=== PATIENT | male | born 1960 | race Caucasian/White ===

== ENCOUNTER 2016-12-24 20:59 | Emergency (ER) | payer BC, OTHER ==
[2016-12-24 21:14] VITALS: BP 186/86
--- NOTE | 2016-12-24 21:51 | EDM.PDOC ---
ED HPI GENERAL MEDICAL PROBLEM - General Chief Complaint: Cardiovascular Problem Stated Complaint: SHORTNESS OF BREATH Time Seen by Provider: 12/24/16 21:09 Source of Information: Reports: Patient, RN Notes Reviewed History Limitations: Reports: No Limitations - History of Present Illness INITIAL COMMENTS - FREE TEXT/NARRATIVE: The patient states that he has been experiencing worsening dyspnea on exertion for the past week. He may have had some occasional wheezing. He denies recent cough or fever. No recent chest pain or palpitations. No recent nausea, vomiting, constipation, diarrhea, urinary symptoms or abdominal pain. The patient has chronic lower extremity edema, which he states is no worse than usual. He states that he sleeps in a recliner at night, but not because of orthopnea. He states that he was diagnosed with obstructive sleep apnea about 20 years ago , and that uvulectomy was recommended, but that he declined, and has never received any treatment for it. Additionally, the patient states that he has not had a general physical exam in at least that amount of time and therefore has no other medical diagnoses. Here in the ED, the patient's initial oxygen saturation was 66% on room air. It brittney to about 91% on 5 L oxygen per nasal cannula. - Related Data Allergies Allergy/AdvReac Type Severity Reaction Status Date / Time No Known Allergies Allergy Verified 12/24/16 21:18 Home Meds: Home Meds . [No Known Home Meds] 12/24/16 [History] Past Medical History Respiratory History: Reports: Sleep Apnea (untreated) Musculoskeletal History: Reports: Back Pain, Chronic Endocrine/Metabolic History: Reports: Obesity/BMI 30+ Social & Family History - Tobacco Use Smoking Status *Q: Current Every Day Smoker Years of Tobacco use: 30 Packs/Tins Daily: 1 - Caffeine Use Caffeine Use: Reports: Coffee, Energy Drinks, Soda - Alcohol Use Alcohol Use History: Yes Alcohol Use Frequency: Socially - Recreational Drug Use Recreational Drug Use: No - Living Situation & Occupation Living situation: Reports: , Alone Occupation: Employed ([employer]) ED ROS GENERAL - Review of Systems Review Of Systems: See Below Constitutional: Reports: No Symptoms HEENT: Reports: No Symptoms Respiratory: Reports: No Symptoms Cardiovascular: Reports: No Symptoms Endocrine: Reports: No Symptoms GI/Abdominal: Reports: No Symptoms : Reports: No Symptoms Musculoskeletal: Reports: No Symptoms Skin: Reports: No Symptoms Neurological: Reports: No Symptoms Psychiatric: Reports: No Symptoms Hematologic/Lymphatic: Reports: No Symptoms Immunologic: Reports: No Symptoms ED EXAM, GENERAL - Physical Exam Exam: See Below Exam Limited By: No Limitations General Appearance: Alert, WD/WN, No Apparent Distress, Obese Eye Exam: Bilateral Eye: Normal Inspection Ears: Normal External Exam, Hearing Grossly Normal Nose: Normal Inspection, No Blood Throat/Mouth: Normal Inspection, Normal Lips, Normal Voice, No Airway Compromise Head: Atraumatic, Normocephalic Neck: Normal Inspection, Full Range of Motion Respiratory/Chest: No Respiratory Distress, No Accessory Muscle Use, Decreased Breath Sounds, Wheezing (faint, expiratory). No: Respiratory Distress, Prolonged Expiration Cardiovascular: Normal Peripheral Pulses, Regular Rate, Rhythm, No Gallop, No JVD, No Murmur, No Rub Peripheral Pulses: 4+: Radial (L), Radial (R) GI/Abdominal: Normal Bowel Sounds, Soft, Non-Tender, No Organomegaly, No Distention, No Abnormal Bruit, No Mass, Other (Obese) (Male) Exam: Deferred Rectal (Males) Exam: Deferred Back Exam: Normal Inspection, Full Range of Motion, NT Extremities: Normal Range of Motion, Normal Capillary Refill, Other (2-3+ pitting pretibial edema bilateral legs, both with associated hyperpigmentation consistent with chronic venous stasis.) Neurological: Alert, Oriented, Normal Cognition, No Motor/Sensory Deficits Psychiatric: Normal Affect Skin Exam: Warm, Dry, Intact, Normal Color, No Rash Lymphatic: No Adenopathy ED CARDIOLOGY PROCEDURES - Endotracheal Intubation Time of Intubation: 01:08 ET Intubation Indication: Respiratory Failure Preparation: Suction, Balloon Tested, BVM Set Up, Difficult Airway Equip Airway Assessment: Obese, Large Tongue Pre-Oxygenation: Assisted With BVM, 100% FiO2 Anesthesia Meds: Propofol, Succinylcholine Placement: Orotracheal, Cuffed, Uncomplicated Placement Cords Visualized: Yes, Grade 4 ETT Size In mm: 8.0 Number of Attempts: 1 Confirmed By: CO2 Indicator, Bilateral Breath Sounds, Chest Xray Tube Secured By: By RT EKG INTERPRETATION EKG Date: 12/24/16 Time: 21:32 Rhythm: NSR Rate (Beats/Min): 86 [place]: Normal P-Wave: Present QRS: Normal ST-T: Normal QT: Normal Comparison: NA - No Prior EKG EKG Interpretation Comments: 1st degree AVB Course - Vital Signs Last Recorded V/S: Last Vital Signs Temp 36.8 C 12/24/16 21:11 Pulse 94 12/24/16 21:11 Resp 19 12/24/16 21:11 BP 186/86 H 12/24/16 21:11 Pulse Ox 90 L 12/25/16 01:22 - Orders/Labs/Meds Orders: Active Orders 24 hr Category Date Time Status BIPAP Adult [RT BiPAP/CPAP] [RC] ASDIRECTED Care 12/24/16 22:39 Active EKG Documentation Completion [RC] STAT Care 12/24/16 21:21 Active Ang Chest [CT] Stat Exams 12/24/16 22:14 Taken Chest 2V [CR] Stat Exams 12/24/16 21:21 Taken Sodium Chloride 0.9% [Normal Saline] 1,000 ml Med 12/24/16 22:15 Active IV ASDIRECTED Medication Orders Sodium Chloride (Normal Saline) 1,000 mls @ 150 mls/hr IV ASDIRECTED JUAN FRANCISCO Last Admin: 12/24/16 22:22 Dose: 150 mls/hr Midazolam HCl 50 mg/ Sodium (Chloride) 50 mls @ 10 mls/hr IV TITRATE JUAN FRANCISCO PRN Reason: 10 MG/HR Labs: Laboratory Tests 12/24/16 12/24/16 12/24/16 Range/Units 21:10 21:10 21:10 WBC 11.69 H (4.23-9.07) K/mm3 RBC 5.28 (4.63-6.08) M/mm3 Hgb 15.0 (13.7-17.5) gm/L Hct 50.7 (40.1-51.0) % MCV 96.0 H (79.0-92.2) fl MCH 28.4 (25.7-32.2) pg MCHC 29.6 L (32.2-35.5) g/dl RDW Std Deviation 61.3 H (35.1-43.9) fL Plt Count 208 (163-337) K/mm3 MPV 10.2 (9.4-12.3) fl Neutrophils % (Manual) 80 H (40-60) % Band Neutrophils % 0 (0-10) % Lymphocytes % (Manual) 10 L (20-40) % Atypical Lymphs % 0 % Monocytes % (Manual) 9 (2-10) % Eosinophils % (Manual) 1 (0.8-7.0) % Basophils % (Manual) 0 L (0.2-1.2) Platelet Estimate Adequate Plt Morphology Comment See note Polychromasia 1+ slight Poikilocytosis 1+ slight Anisocytosis 1+ slight RBC Morph Comment Not Reportable PT 11.3 (8.0-13.0) SECONDS INR 1.03 APTT 27 (22-36) SECONDS D-Dimer, Quantitative 1.36 H (0.19-0.59) mg/L Puncture Site ABG pH (7.35-7.45) ABG pCO2 (35.0-45.0) mmHg ABG pO2 (80.0-100.0) mmHg ABG HCO3 (22.0-26.0) meq/L A-a Gradient mmHg O2 Delivery Device FiO2 (21.00-100.00) % Blood Gas Comments Sodium 137 (136-145) mEq/L Potassium 4.8 (3.5-5.1) mEq/L Chloride 99 (98-107) mEq/L Carbon Dioxide 35 H (21-32) mEq/L Anion Gap 7.8 (5-15) BUN 15 (7-18) mg/dL Creatinine 1.4 H (0.7-1.3) mg/dL Est Cr Clr Drug Dosing 60.83 mL/min Estimated GFR (MDRD) 52 (>60) mL/min BUN/Creatinine Ratio 10.7 L (14-18) Glucose 136 H (74-106) mg/dL Lactic Acid (0.4-2.0) mmol/L Calcium 8.6 (8.5-10.1) mg/dL Total Bilirubin 0.3 (0.2-1.0) mg/dL AST 26 (15-37) U/L ALT 41 (16-63) U/L Alkaline Phosphatase 126 H (46-116) U/L Troponin I 0.039 (0.00-0.056) ng/mL B-Natriuretic Peptide (0-100) pg/mL Total Protein 8.6 H (6.4-8.2) g/dl Albumin 3.0 L (3.4-5.0) g/dl Globulin 5.6 gm/dL Albumin/Globulin Ratio 0.5 L (1-2) 12/24/16 12/24/16 12/24/16 Range/Units 21:10 21:21 21:40 WBC (4.23-9.07) K/mm3 RBC (4.63-6.08) M/mm3 Hgb (13.7-17.5) gm/L Hct (40.1-51.0) % MCV (79.0-92.2) fl MCH (25.7-32.2) pg MCHC (32.2-35.5) g/dl RDW Std Deviation (35.1-43.9) fL Plt Count (163-337) K/mm3 MPV (9.4-12.3) fl Neutrophils % (Manual) (40-60) % Band Neutrophils % (0-10) % Lymphocytes % (Manual) (20-40) % Atypical Lymphs % % Monocytes % (Manual) (2-10) % Eosinophils % (Manual) (0.8-7.0) % Basophils % (Manual) (0.2-1.2) Platelet Estimate Plt Morphology Comment Polychromasia Poikilocytosis Anisocytosis RBC Morph Comment PT (8.0-13.0) SECONDS INR APTT (22-36) SECONDS D-Dimer, Quantitative (0.19-0.59) mg/L Puncture Site Rt radial ABG pH 7.23 L (7.35-7.45) ABG pCO2 88.0 H* (35.0-45.0) mmHg ABG pO2 76.0 L (80.0-100.0) mmHg ABG HCO3 35.3 H (22.0-26.0) meq/L A-a Gradient mmHg O2 Delivery Device Nasal cannula FiO2 0.00 L (21.00-100.00) % Blood Gas Comments Sodium (136-145) mEq/L Potassium (3.5-5.1) mEq/L Chloride (98-107) mEq/L Carbon Dioxide (21-32) mEq/L Anion Gap (5-15) BUN (7-18) mg/dL Creatinine (0.7-1.3) mg/dL Est Cr Clr Drug Dosing mL/min Estimated GFR (MDRD) (>60) mL/min BUN/Creatinine Ratio (14-18) Glucose (74-106) mg/dL Lactic Acid 1.0 (0.4-2.0) mmol/L Calcium (8.5-10.1) mg/dL Total Bilirubin (0.2-1.0) mg/dL AST (15-37) U/L ALT (16-63) U/L Alkaline Phosphatase (46-116) U/L Troponin I (0.00-0.056) ng/mL B-Natriuretic Peptide 443 H (0-100) pg/mL Total Protein (6.4-8.2) g/dl Albumin (3.4-5.0) g/dl Globulin gm/dL Albumin/Globulin Ratio (1-2) 12/24/16 Range/Units 23:30 WBC (4.23-9.07) K/mm3 RBC (4.63-6.08) M/mm3 Hgb (13.7-17.5) gm/L Hct (40.1-51.0) % MCV (79.0-92.2) fl MCH (25.7-32.2) pg MCHC (32.2-35.5) g/dl RDW Std Deviation (35.1-43.9) fL Plt Count (163-337) K/mm3 MPV (9.4-12.3) fl Neutrophils % (Manual) (40-60) % Band Neutrophils % (0-10) % Lymphocytes % (Manual) (20-40) % Atypical Lymphs % % Monocytes % (Manual) (2-10) % Eosinophils % (Manual) (0.8-7.0) % Basophils % (Manual) (0.2-1.2) Platelet Estimate Plt Morphology Comment Polychromasia Poikilocytosis Anisocytosis RBC Morph Comment PT (8.0-13.0) SECONDS INR APTT (22-36) SECONDS D-Dimer, Quantitative (0.19-0.59) mg/L Puncture Site Rt radial ABG pH 7.17 L* (7.35-7.45) ABG pCO2 99.9 H* (35.0-45.0) mmHg ABG pO2 79.0 L (80.0-100.0) mmHg ABG HCO3 35.2 H (22.0-26.0) meq/L A-a Gradient 52 mmHg O2 Delivery Device Bipap FiO2 40.00 (21.00-100.00) % Blood Gas Comments 03/18 Sodium (136-145) mEq/L Potassium (3.5-5.1) mEq/L Chloride (98-107) mEq/L Carbon Dioxide (21-32) mEq/L Anion Gap (5-15) BUN (7-18) mg/dL Creatinine (0.7-1.3) mg/dL Est Cr Clr Drug Dosing mL/min Estimated GFR (MDRD) (>60) mL/min BUN/Creatinine Ratio (14-18) Glucose (74-106) mg/dL Lactic Acid (0.4-2.0) mmol/L Calcium (8.5-10.1) mg/dL Total Bilirubin (0.2-1.0) mg/dL AST (15-37) U/L ALT (16-63) U/L Alkaline Phosphatase (46-116) U/L Troponin I (0.00-0.056) ng/mL B-Natriuretic Peptide (0-100) pg/mL Total Protein (6.4-8.2) g/dl Albumin (3.4-5.0) g/dl Globulin gm/dL Albumin/Globulin Ratio (1-2) Meds: Medications Generic Name Dose Route Start Last Admin Trade Name Freq PRN Reason Stop Dose Admin Sodium Chloride 1,000 mls @ 150 mls/hr 12/24/16 22:15 12/24/16 22:22 Normal Saline IV 150 mls/hr ASDIRECTED JUAN FRANCISCO Administration Midazolam HCl 50 mg/ Sodium 50 mls @ 10 mls/hr 12/25/16 01:45 Chloride IV TITRATE JUAN FRANCISCO 10 MG/HR Discontinued Medications Generic Name Dose Route Start Last Admin Trade Name Freq PRN Reason Stop Dose Admin Albuterol/Ipratropium 3 ml 12/25/16 01:22 12/25/16 01:51 Duoneb 3.0-0.5 Mg/3 Ml NEB 12/25/16 01:23 3 ml ONETIME ONE Administration Albuterol/Ipratropium Confirm 12/25/16 01:25 Duoneb 3.0-0.5 Mg/3 Ml Administered 12/25/16 01:26 Dose 3 ml .ROUTE .STK-MED ONE Propofol Confirm 12/25/16 00:53 Diprivan 100 Ml Administered 12/25/16 00:54 Dose 100 mls @ as directed .ROUTE .STK-MED ONE Rocuronium [place] Confirm 12/25/16 01:23 Zemuron Administered 12/25/16 01:24 Dose 100 mg .ROUTE .STK-MED ONE - Re-Assessments/Exams Free Text/Narrative Re-Assessment/Exam: 12/24/16 22:10 Two-view chest radiograph appears to be grossly unremarkable. Cardiac silhouette demonstrate mild cardiomegaly. No pulmonary vascular congestion. No pleural effusions. No focal infiltrate. No pneumothorax. Formal read per the Radiologist pending. 12/24/16 22:15 Notified that the patient's d-dimer is elevated at 1.36. I have ordered a CT angiogram to evaluate for PE, along with IV fluid. 12/24/16 22:38 The patient's ABG demonstrates an [id number] respiratory acidosis. While the patient does not appear to be struggling to breathe, I will order some BiPAP to see if we can improve his acid/base status. 12/24/16 23:16 Notified by the nurse that the patient just had a brief run of ventricular tachycardia. 12/24/16 23:54 CT angiogram of the chest is read by [facility] as: 1. Pulmonary arterial hypertension. No obvious pulmonary embolus. 2. Low lung volumes with a small amount of dependent atelectasis. 3. Small basilar infiltrates in atelectatic lung not excluded 12/25/16 00:[address] Calloway at 00:01. She accepts the patient to be admitted to [facility] with telemetry. 12/25/16 00:51 The patient's repeat ABG is worse, despite BiPAP, at 7.17/99.9/79/35.2. He will need to be intubated. 12/25/16 01:13 Following propofol and succinylcholine, the patient was intubated without difficulty. Initial vent settings are A/C 14 / .500 / 5.0 / 0.50. Case then discussed with Dr. Calloway at 01:13. She would like the patient to be transferred. 12/25/16 01:25 The telephone surveyor at [facility], Dr. Wade, is currently busy with a procedure. We will re-attempt to contact him in about 10 minutes. Post intubation portal chest radiograph appears to demonstrate the tip of the ET tube approximately 3 cm above the gonzalo, and the OG tube to the stomach via the esophagus. 12/25/16 01:[address] Wade at 01:31. He accepts the patient to transfer to their ICU. Post admission, the patient was fighting the ventilator. His propofol was increased from 50 mcg/kg/min to 75 mcg/kg/min. His blood pressure, however, subsequently dropped into the 70s, therefore I have ordered discontinuation of the propofol, and will switch him to a Versed drip. In the meantime, I have ordered rocuronium 160 mg IVP. 12/25/16 02:33 Ground transport was not available, therefore the patient will go by fixed wing. He is too heavy for helicopter. The flight crew is here to transfer the patient. Departure - Departure Time of Disposition: 02:34 Disposition: DC/Tfer to Acute Hospital 02 Condition: Serious Clinical Impression: Hypoxemia, Hypercapnic respiratory failure - My Orders Last 24 Hours: My Active Orders 12/24/16 21:21 EKG Documentation Completion [RC] STAT Chest 2V [CR] Stat 12/24/16 22:14 Ang Chest [CT] Stat 12/24/16 22:15 Sodium Chloride 0.9% [Normal Saline] 1,000 ml IV ASDIRECTED 12/24/16 22:39 BIPAP Adult [RT BiPAP/CPAP] [RC] ASDIRECTED - Assessment/Plan Last 24 Hours: My Active Orders 12/24/16 21:21 EKG Documentation Completion [RC] STAT Chest 2V [CR] Stat 12/24/16 22:14 Ang Chest [CT] Stat 12/24/16 22:15 Sodium Chloride 0.9% [Normal Saline] 1,000 ml IV ASDIRECTED 12/24/16 22:39 BIPAP Adult [RT BiPAP/CPAP] [RC] ASDIRECTED
[2016-12-24] MEDS ORDERED: Sodium Chloride 0.9% 1,000 ML IV SCH (22:15)
[2016-12-25] MEDS ORDERED: Propofol 1,000 MG/100 ML SDV ONE (00:54)
[2016-12-25] MEDS ORDERED: Propofol 200 MG/20 ML SDV ONE (00:54)
[2016-12-25] MEDS ORDERED: Albuterol/Ipratropium 3.0-0.5 MG/3 ML Neb Soln NEB ONE (01:22)
[2016-12-25] MEDS ORDERED: Rocuronium 50 MG/5 ML Vial ONE ×2 (01:23→01:24)
[2016-12-25] MEDS ORDERED: Succinylcholine/Normal Saline 100 MG/5 ML Syringe ONE (01:24)
[2016-12-25] MEDS ORDERED: Albuterol/Ipratropium 3.0-0.5 MG/3 ML Neb Soln ONE (01:25)
[2016-12-25] MEDS ORDERED: Midazolam 50 MG in Sodium Chloride 0.9% 40 ML IV SCH (01:45)
[2016-12-25] MEDS ORDERED: Midazolam 50 MG in Sodium Chloride 0.9% 50 ML IV SCH (02:34)
[2016-12-25] MEDS ORDERED: Sodium Chloride 0.9% 250 ML ONE (02:54)
--- NOTE | 2016-12-25 12:18 | PCM.DCSUM1 ---
Discharge Summary - Hospital Course Free Text/Narrative:: 56 year old male who has no known history of respiratory disease, presented with difficulty breathing. He was not seen by the hospitalist service. Information provided was very limited; the initial acceptance was based on reassurance that the patient was appropriate for the floor despite multiple questions for clarification. Prior to his transfer from the ED to the hospital side, the patient had marked depression of his respiratory drive. He was intubated; the final ABG which documented the change in status was not provided. After hearing the need for the intubation, the hospitalist service recommended transfer to [facility]. 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 Thus the patient was never seen or examined by the hospitalist service prior to transfer by fixed wing. He was not appropriate for a helicopter because of weight restrictions. - Discharge Data Discharge Date: 12/25/16 Discharge Disposition: DC/Tfer to [facility] 02 Preliminary Cause of *Q: Respiratory Failure Condition: Fair - Patient Instructions Diet: NPO Activity: Bedrest Driving: Do Not Drive Showering/Bathing: No Showering Notify Provider of: Fever - Discharge Plan Home Medications: Home Meds . [No Known Home Meds] 12/24/16 [History] Referrals: PCP,None [Primary Care Provider] - - Discharge Summary/Plan Comment DC Time >30 min.: No - Patient Data Vitals - Most Recent: Last Vital Signs Temp 36.8 C 12/24/16 21:11 Pulse 94 12/24/16 21:11 Resp 19 12/24/16 21:11 BP 186/86 H 12/24/16 21:11 Pulse Ox 90 L 12/25/16 01:22 Weight - Most Recent: 158.757 kg I&O - Last 24 hours: Intake & Output 12/24/16 12/25/16 12/25/16 22:59 06:59 14:59 Output Total 475 Balance -475 Med Orders - Current: Current Medications Sodium Chloride (Normal Saline) 1,000 mls @ 150 mls/hr IV ASDIRECTED JUAN FRANCISCO Last Admin: 12/24/16 22:22 Dose: 150 mls/hr Midazolam HCl 50 mg/ Sodium (Chloride) 100 mls @ 20 mls/hr IV TITRATE JUAN FRANCISCO PRN Reason: 10 MG/HR Discontinued Medications Albuterol/Ipratropium (Duoneb 3.0-0.5 Mg/3 Ml) 3 ml NEB ONETIME ONE Stop: 12/25/16 01:23 Last Admin: 12/25/16 01:51 Dose: 3 ml Albuterol/Ipratropium (Duoneb 3.0-0.5 Mg/3 Ml) Confirm Administered Dose 3 ml .ROUTE .STK-MED ONE Stop: 12/25/16 01:26 Propofol (Diprivan 100 Ml) Confirm Administered Dose 100 mls @ as directed .ROUTE .STK-MED ONE Stop: 12/25/16 00:54 Midazolam HCl 50 mg/ Sodium (Chloride) 50 mls @ 10 mls/hr IV TITRATE JUAN FRANCISCO PRN Reason: 10 MG/HR Sodium Chloride (Normal Saline) Confirm Administered Dose 250 mls @ as directed .ROUTE .STK-MED ONE Stop: 12/25/16 02:55 Rocuronium [place] (Zemuron) Confirm Administered Dose 100 mg .ROUTE .STK-MED ONE Stop: 12/25/16 01:24 Discharge Operative/Procedures - Procedures Performed Intubation Indication: Respiratory Failure *Q Meaningful Use (DIS) - VTE *Q VTE Criteria *Q: - Stroke *Q Stroke Criteria *Q: - AMI *Q AMI Criteria *Q:
--- NOTE | 2016-12-28 13:37 | CR ---
Chest: 2 views of the chest are obtained. Comparison: No prior chest x-ray Slight atelectasis is noted within the right and left lung bases. Minimal atelectasis noted within the left midlung. Slight areas of pleural thickening noted along both lateral chest parish. Heart size and mediastinum are normal. Bony structures are unremarkable. Impression: 1. Findings felt to be incidental as described above. Nothing acute is definitely appreciated. Diagnostic code #2
--- NOTE | 2016-12-28 13:44 | CR ---
Chest: Portable view of the chest was obtained. Comparison: Previous chest x-ray of 12/24/16. Heart size and mediastinum are within normal limits for portable technique. Endotracheal tube is seen with tip lying at the level of the clavicles. Nasogastric tube is seen with tip lying in the area of the stomach. Impression: 1. Satisfactory position of endotracheal and nasogastric tube. 2. Nothing acute appreciated on portable chest x-ray. Diagnostic code #3
--- NOTE | 2016-12-28 15:52 | CT ---
CT chest Technique: Multiple axial sections through the chest are obtained. Intravenous contrast was utilized. Study was performed as a pulmonary angiogram protocol. Findings: Prominent amount of mediastinal fat is incidentally noted. Mild coronary artery calcification is seen. Pulmonary arteries are not optimally opacified. No discrete filling defects are seen within the main or segmental branches. Subsegmental pulmonary emboli could be missed. No mediastinal adenopathy is seen. Hilar regions appear within normal limits. Slight atelectasis is noted within the right lung base. Lungs otherwise are clear. Incidental cyst is noted within the left kidney. Minimal degenerative spurring is noted within the spine. Impression: 1. No findings of pulmonary embolism within the main or segmental branches. 2. Slight right basilar atelectasis. 3. Other incidental findings. Diagnostic code #2 I agree with preliminary report issued by [facility] ([facility] report finalized on 12/25/16, 12:49 AM Central Time)
== END 2016-12-25 03:05 ==
LOC: JD.ED 20:59 → JD.MS 12-25 00:33 → UNDOADMIN 12-25 00:33 → JD.ED 12-25 03:05
DX: J96.92 Respiratory failure, unspecified with hypercapnia (principal); E66.9 Obesity, unspecified; F17.210 Nicotine dependence, cigarettes, uncomplicated; G47.30 Sleep apnea, unspecified
CPT/HCPCS: 31500; 36415; 36600; 51702; 71020; 71275; 80053; 82803; 83605; 83880; 84484; 85025; 85379; 85610; 85730; 93005; 94660; 94664; 96361; 96365; 96374; 96375; 99291; 99292; J0330; J2250; J7040; J7050; J2704; J3490

== ENCOUNTER 2017-01-16 10:19 | Inpatient (IN) | payer OTHER ==
[2017-01-16] MEDS ORDERED: methylPREDNISolone Sodium Succinate 125 MG/2 ML SDV IVPUSH ONE (10:45)
[2017-01-16] MEDS ORDERED: Albuterol/Ipratropium 3.0-0.5 MG/3 ML Neb Soln NEB ONE ×2 (10:45→10:48)
--- NOTE | 2017-01-16 10:48 | EDM.PDOC ---
ED HPI GENERAL MEDICAL PROBLEM - General Chief Complaint: Respiratory Problem Stated Complaint: SOB Time Seen by Provider: 01/16/17 10:26 Source of Information: Reports: Patient History Limitations: Reports: No Limitations - History of Present Illness INITIAL COMMENTS - FREE TEXT/NARRATIVE: The patient is a 56-year-old male who comes in with shortness of breath. He was recently admitted at [facility] in [facility] for respiratory failure. He had to be intubated. He was treated for pneumonia and CHF exacerbation and COPD. He was just discharged about a week ago. He's been feeling more short of breath for the past day or 2. He's also had increased cough and increased sputum production. Has been feeling progressively more short of breath. He feels generally ill, not sure if he's had a fever. He does not have any chest pain. No lower extremity pain or swelling. No abdominal pain. States that he completed his antibiotics while in [facility], not currently on antibiotics. He is currently on 3 L of oxygen nasal cannula at home and has also been using nebulizer treatments. Nebulizer treatments have not been helpful. Right Chest Pain Score (Numeric/FACES): 3 - Related Data Allergies Allergy/AdvReac Type Severity Reaction Status Date / Time No Known Allergies Allergy Verified 01/16/17 10:26 Home Meds: Home Meds . [No Known Home Meds] 12/24/16 [History] Past Medical History - Past Health History Medical/Surgical History: Denies Medical/Surgical History Respiratory History: Reports: Sleep Apnea (untreated) Other Respiratory History: sleep apnea Musculoskeletal History: Reports: Back Pain, Chronic Endocrine/Metabolic History: Reports: Obesity/BMI 30+ Social & Family History - Tobacco Use Smoking Status *Q: Current Every Day Smoker Years of Tobacco use: 30 Packs/Tins Daily: 1 - Caffeine Use Caffeine Use: Reports: Coffee, Energy Drinks, Soda - Recreational Drug Use Recreational Drug Use: No - Living Situation & Occupation Living situation: Reports: , Alone 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 Denies: Fever HEENT: Reports: No Symptoms Respiratory: Reports: Shortness of Breath, Cough Cardiovascular: Reports: Dyspnea on Exertion. Denies: Chest Pain, Edema GI/Abdominal: Denies: Abdominal Pain : Reports: No Symptoms Musculoskeletal: Reports: No Symptoms Skin: Reports: No Symptoms Neurological: Reports: No Symptoms Psychiatric: Reports: No Symptoms ED EXAM, GENERAL - Physical Exam Exam: See Below Exam Limited By: No Limitations General Appearance: Alert, Moderate Distress, Other (very short of breath) Eye Exam: Bilateral Eye: Normal Inspection Ears: Normal External Exam Nose: Normal Inspection Throat/Mouth: Normal Inspection, Normal Voice, No Airway Compromise Head: Atraumatic, Normocephalic Neck: Normal Inspection, Supple, Non-Tender, Full Range of Motion Respiratory/Chest: Respiratory Distress, Decreased Breath Sounds, Wheezing Cardiovascular: Regular Rate, Rhythm, No Edema, Tachycardia GI/Abdominal: Soft, Non-Tender, No Distention. No: Rebound Back Exam: Normal Inspection Extremities: Normal Inspection Neurological: Alert, Oriented, Normal Cognition, No Motor/Sensory Deficits Psychiatric: Normal Affect, Normal Mood Skin Exam: Warm, Dry, Intact, Normal Color, No Rash Course - Vital Signs Last Recorded V/S: Last Vital Signs Temp 36.1 C 01/16/17 13:47 Pulse 109 H 01/16/17 13:47 Resp 27 H 01/16/17 13:47 BP 126/76 01/16/17 13:47 Pulse Ox 92 L 01/16/17 13:49 - Orders/Labs/Meds Orders: Active Orders 24 hr Category Date Time Status Patient Status [ADT] Routine ADT 01/16/17 13:42 Active EKG 12 Lead [EKG Documentation Completion] [RC] STAT Care 01/16/17 10:44 Active Peripheral IV Care [RC] . DIRECTED Care 01/16/17 10:45 Active RT Aerosol Therapy [RC] ASDIRECTED Care 01/16/17 10:45 Active RT Aerosol Therapy [RC] ASDIRECTED Care 01/16/17 10:48 Active CULTURE BLOOD [BC] Stat Lab 01/16/17 10:59 Received CULTURE BLOOD [BC] Stat Lab 01/16/17 11:23 Received Sodium Chloride 0.9% [Saline Flush] Med 01/16/17 10:44 Active 10 ml FLUSH ASDIRECTED PRN Blood Culture x2 Reflex Set [OM.PC] Stat Oth 01/16/17 10:44 Ordered Peripheral IV Insertion Adult [OM.PC] Routine Oth 01/16/17 10:44 Ordered Medication Orders Acetaminophen (Tylenol) 650 mg PO Q4H PRN PRN Reason: Pain (Mild 1-3)/fever Hydrocodone Bitart/Acetaminophen (Wilson 325-5 Mg) 1 tab PO Q4H PRN PRN Reason: Pain (moderate 4-6) Albuterol/Ipratropium (Duoneb 3.0-0.5 Mg/3 Ml) 3 ml NEB Q4H PRN PRN Reason: Shortness Of Breath/wheezing Bisacodyl (Dulcolax) 5 mg PO DAILY PRN PRN Reason: Constipation Dextrose/Water (Dextrose 50% In Water) 50 ml IVPUSH ASDIRECTED PRN PRN Reason: Hypoglycemia Docusate Sodium (Colace) 100 mg PO BID PRN PRN Reason: Constipation Glipizide (Glucotrol Xl) 5 mg PO BID JUAN FRANCISCO Heparin Sodium (Porcine) (Heparin Sodium) 5,000 units SUBCUT Q8H JUAN FRANCISCO Hydralazine HCl (Apresoline) 20 mg IVPUSH Q4H PRN PRN Reason: Hypertension Hydrochlorothiazide (Hydrochlorothiazide) 12.5 mg PO BIDDIURETIC JUAN FRANCISCO Magnesium Sulfate 2 gm/ Premix 50 mls @ 25 mls/hr IV ONETIME ONE Stop: 01/16/17 15:54 Last Admin: 01/16/17 14:15 Dose: 25 mls/hr Promethazine HCl 12.5 mg/ (Sodium Chloride) 50.5 mls @ 100 mls/hr IV Q6H PRN PRN Reason: Nausea/Vomiting Azithromycin 500 mg/ Sodium (Chloride) 250 mls @ 250 mls/hr IV Q24H JUAN FRANCISCO Furosemide 100 mg/ Sodium (Chloride) 100 mls @ 3 mls/hr IV TITRATE JUAN FRANCISCO PRN Reason: Protocol Insulin Aspart (Novolog) 0 unit SUBCUT QIDACANDBED JUAN FRANCISCO PRN Reason: Protocol Lorazepam (Ativan) 1 mg IV Q6H PRN PRN Reason: Anxiety Lorazepam (Ativan) 2 mg IVPUSH Q4H PRN PRN Reason: Seizures Magnesium Sulfate (Pharmacy To Dose - Magnesium Replacement) 1 dose .XX ASDIRECTED [facility] Methylprednisolone Sodium Succinate (Solu-Medrol) 80 mg IVPUSH Q8H JUAN FRANCISCO Metoprolol Tartrate (Lopressor) 5 mg IVPUSH Q4H PRN PRN Reason: Tachycardia Morphine Sulfate (Morphine) 2 mg IVPUSH Q4H PRN PRN Reason: Other Stop: 01/21/17 13:51 Last Admin: 01/16/17 14:11 Dose: 2 mg Ondansetron HCl (Zofran) 4 mg IV Q6H PRN PRN Reason: Nausea/Vomiting Polyethylene Glycol (Miralax) 17 gm PO DAILY PRN PRN Reason: Constipation Potassium Chloride (Pharmacy To Dose - Potassium Replacement) 1 dose .XX ASDIRECTED JUAN FRANCISCO Senna/Docusate Sodium (Senna Plus) 1 tab PO BID PRN PRN Reason: Constipation Sodium Chloride (Saline Flush) 10 ml FLUSH ASDIRECTED PRN PRN Reason: Keep Vein Open Last Admin: 01/16/17 11:04 Dose: 10 ml Temazepam (Restoril) 15 mg PO BEDTIME PRN PRN Reason: Sleep Labs: Laboratory Tests 01/16/17 01/16/17 01/16/17 Range/Units 10:35 10:35 10:35 WBC 13.21 H (4.23-9.07) K/mm3 RBC 5.13 (4.63-6.08) M/mm3 Hgb 14.3 (13.7-17.5) gm/L Hct 45.0 (40.1-51.0) % MCV 87.7 (79.0-92.2) fl MCH 27.9 (25.7-32.2) pg MCHC 31.8 L (32.2-35.5) g/dl RDW Std Deviation 53.2 H (35.1-43.9) fL Plt Count 172 (163-337) K/mm3 MPV 10.9 (9.4-12.3) fl Neut % (Auto) 83.5 H (34.0-67.9) % Lymph % (Auto) 7.9 L (21.8-53.1) % [place] % (Auto) 7.0 (5.3-12.2) % Eos % (Auto) 1.1 (0.8-7.0) Baso % (Auto) 0.2 (0.1-1.2) % Neut # (Auto) 11.03 H (1.78-5.38) K/mm3 Lymph # (Auto) 1.05 L (1.32-3.57) K/mm3 [place] # (Auto) 0.93 H (0.30-0.82) K/mm3 Eos # (Auto) 0.14 (0.04-0.54) K/mm3 Baso # (Auto) 0.02 (0.01-0.08) K/mm3 Manual Slide Review Abnormal smear Sodium 135 L (136-145) mEq/L Potassium 4.2 (3.5-5.1) mEq/L Chloride 100 (98-107) mEq/L Carbon Dioxide 26 (21-32) mEq/L Anion Gap 13.2 (5-15) BUN 20 H (7-18) mg/dL Creatinine 1.7 H (0.7-1.3) mg/dL Est Cr Clr Drug Dosing 51.68 mL/min Estimated GFR (MDRD) 42 (>60) mL/min BUN/Creatinine Ratio 11.8 L (14-18) Glucose 181 H (74-106) mg/dL Hemoglobin A1c (4.50-6.20) % Lactic Acid (0.4-2.0) mmol/L Calcium 9.1 (8.5-10.1) mg/dL Magnesium 1.9 (1.8-2.4) mg/dl Total Bilirubin 8.2 H (0.2-1.0) mg/dL AST 31 (15-37) U/L ALT 63 (16-63) U/L Alkaline Phosphatase 210 H (46-116) U/L Troponin I 0.052 (0.00-0.056) ng/mL C-Reactive Protein 24.3 H* (<1.0) mg/dL Ypn-Q-Rvfbbsstduz Pept 47241 H (0-125) pg/mL Total Protein 8.2 (6.4-8.2) g/dl Albumin 2.8 L (3.4-5.0) g/dl Globulin 5.4 gm/dL Albumin/Globulin Ratio 0.5 L (1-2) Free T4 (0.76-1.46) ng/dL TSH 3rd Generation (0.358-3.74) uIU/mL Urine Color (Yellow) Urine Appearance (Clear) Urine pH (5.0-8.0) Ur Specific [place] (1.005-1.030) Urine Protein (Negative) Urine Glucose (UA) (Negative) Urine Ketones (Negative) Urine Occult Blood (Negative) Urine Nitrite (Negative) Urine Bilirubin (Negative) Urine Urobilinogen (0.2-1.0) Ur Leukocyte Esterase (Negative) Urine RBC (0-5) /hpf Urine WBC (0-5) /hpf Ur Epithelial Cells Urine Bacteria (FEW) /hpf Urine Mucus (FEW) /hpf 01/16/17 01/16/17 01/16/17 Range/Units 10:35 10:35 10:59 WBC (4.23-9.07) K/mm3 RBC (4.63-6.08) M/mm3 Hgb (13.7-17.5) gm/L Hct (40.1-51.0) % MCV (79.0-92.2) fl MCH (25.7-32.2) pg MCHC (32.2-35.5) g/dl RDW Std Deviation (35.1-43.9) fL Plt Count (163-337) K/mm3 MPV (9.4-12.3) fl Neut % (Auto) (34.0-67.9) % Lymph % (Auto) (21.8-53.1) % [place] % (Auto) (5.3-12.2) % Eos % (Auto) (0.8-7.0) Baso % (Auto) (0.1-1.2) % Neut # (Auto) (1.78-5.38) K/mm3 Lymph # (Auto) (1.32-3.57) K/mm3 [place] # (Auto) (0.30-0.82) K/mm3 Eos # (Auto) (0.04-0.54) K/mm3 Baso # (Auto) (0.01-0.08) K/mm3 Manual Slide Review Sodium (136-145) mEq/L Potassium (3.5-5.1) mEq/L Chloride (98-107) mEq/L Carbon Dioxide (21-32) mEq/L Anion Gap (5-15) BUN (7-18) mg/dL Creatinine (0.7-1.3) mg/dL Est Cr Clr Drug Dosing mL/min Estimated GFR (MDRD) (>60) mL/min BUN/Creatinine Ratio (14-18) Glucose (74-106) mg/dL Hemoglobin A1c 6.80 H (4.50-6.20) % Lactic Acid 1.2 (0.4-2.0) mmol/L Calcium (8.5-10.1) mg/dL Magnesium (1.8-2.4) mg/dl Total Bilirubin (0.2-1.0) mg/dL AST (15-37) U/L ALT (16-63) U/L Alkaline Phosphatase (46-116) U/L Troponin I (0.00-0.056) ng/mL C-Reactive Protein (<1.0) mg/dL Wel-X-Krxglhbqbbw Pept (0-125) pg/mL Total Protein (6.4-8.2) g/dl Albumin (3.4-5.0) g/dl Globulin gm/dL Albumin/Globulin Ratio (1-2) Free T4 1.44 (0.76-1.46) ng/dL TSH 3rd Generation 0.846 (0.358-3.74) uIU/mL Urine Color (Yellow) Urine Appearance (Clear) Urine pH (5.0-8.0) Ur Specific [place] (1.005-1.030) Urine Protein (Negative) Urine Glucose (UA) (Negative) Urine Ketones (Negative) Urine Occult Blood (Negative) Urine Nitrite (Negative) Urine Bilirubin (Negative) Urine Urobilinogen (0.2-1.0) Ur Leukocyte Esterase (Negative) Urine RBC (0-5) /hpf Urine WBC (0-5) /hpf Ur Epithelial Cells Urine Bacteria (FEW) /hpf Urine Mucus (FEW) /hpf 01/16/17 Range/Units 12:49 WBC (4.23-9.07) K/mm3 RBC (4.63-6.08) M/mm3 Hgb (13.7-17.5) gm/L Hct (40.1-51.0) % MCV (79.0-92.2) fl MCH (25.7-32.2) pg MCHC (32.2-35.5) g/dl RDW Std Deviation (35.1-43.9) fL Plt Count (163-337) K/mm3 MPV (9.4-12.3) fl Neut % (Auto) (34.0-67.9) % Lymph % (Auto) (21.8-53.1) % [place] % (Auto) (5.3-12.2) % Eos % (Auto) (0.8-7.0) Baso % (Auto) (0.1-1.2) % Neut # (Auto) (1.78-5.38) K/mm3 Lymph # (Auto) (1.32-3.57) K/mm3 [place] # (Auto) (0.30-0.82) K/mm3 Eos # (Auto) (0.04-0.54) K/mm3 Baso # (Auto) (0.01-0.08) K/mm3 Manual Slide Review Sodium (136-145) mEq/L Potassium (3.5-5.1) mEq/L Chloride (98-107) mEq/L Carbon Dioxide (21-32) mEq/L Anion Gap (5-15) BUN (7-18) mg/dL Creatinine (0.7-1.3) mg/dL Est Cr Clr Drug Dosing mL/min Estimated GFR (MDRD) (>60) mL/min BUN/Creatinine Ratio (14-18) Glucose (74-106) mg/dL Hemoglobin A1c (4.50-6.20) % Lactic Acid (0.4-2.0) mmol/L Calcium (8.5-10.1) mg/dL Magnesium (1.8-2.4) mg/dl Total Bilirubin (0.2-1.0) mg/dL AST (15-37) U/L ALT (16-63) U/L Alkaline Phosphatase (46-116) U/L Troponin I (0.00-0.056) ng/mL C-Reactive Protein (<1.0) mg/dL Uoh-L-Qaaoobdaaml Pept (0-125) pg/mL Total Protein (6.4-8.2) g/dl Albumin (3.4-5.0) g/dl Globulin gm/dL Albumin/Globulin Ratio (1-2) Free T4 (0.76-1.46) ng/dL TSH 3rd Generation (0.358-3.74) uIU/mL Urine Color Yellow (Yellow) Urine Appearance Slt cloudy H (Clear) Urine pH 6.0 (5.0-8.0) Ur Specific [place] 1.015 (1.005-1.030) Urine Protein 2+ H (Negative) Urine Glucose (UA) Negative (Negative) Urine Ketones Negative (Negative) Urine Occult Blood Trace-lysed H (Negative) Urine Nitrite Negative (Negative) Urine Bilirubin Negative (Negative) Urine Urobilinogen 1.0 (0.2-1.0) Ur Leukocyte Esterase Negative (Negative) Urine RBC 0-5 (0-5) /hpf Urine WBC 0-5 (0-5) /hpf Ur Epithelial Cells Not Reportable Urine Bacteria Few (FEW) /hpf Urine Mucus Few (FEW) /hpf Meds: Medications Generic Name Dose Route Start Last Admin Trade Name Freq PRN Reason Stop Dose Admin Acetaminophen 650 mg 01/16/17 13:47 Tylenol PO Q4H PRN Pain (Mild 1-3)/fever Hydrocodone Bitart/Acetaminophen 1 tab 01/16/17 13:47 Wilson 325-5 Mg PO Q4H PRN Pain (moderate 4-6) Albuterol/Ipratropium 3 ml 01/16/17 13:51 Duoneb 3.0-0.5 Mg/3 Ml NEB Q4H PRN Shortness Of Breath/wheezing Bisacodyl 5 mg 01/16/17 13:51 Dulcolax PO DAILY PRN Constipation Dextrose/Water 50 ml 01/16/17 14:53 Dextrose 50% In Water IVPUSH ASDIRECTED PRN Hypoglycemia Docusate Sodium 100 mg 01/16/17 13:51 Colace PO BID PRN Constipation Glipizide 5 mg 01/16/17 21:00 Glucotrol Xl PO BID JUAN FRANCISCO Heparin Sodium (Porcine) 5,000 units 01/16/17 15:00 Heparin Sodium SUBCUT Q8H JUAN FRANCISCO Hydralazine HCl 20 mg 01/16/17 13:55 Apresoline IVPUSH Q4H PRN Hypertension Hydrochlorothiazide 12.5 mg 01/16/17 14:30 Hydrochlorothiazide PO BIDDIURETIC JUAN FRANCISCO Magnesium Sulfate 2 gm/ Premix 50 mls @ 25 mls/hr 01/16/17 13:55 01/16/17 14: 15 IV 01/16/17 15:54 25 mls/hr ONETIME ONE Administration Promethazine HCl 12.5 mg/ 50.5 mls @ 100 mls/hr 01/16/17 13:51 Sodium Chloride IV Q6H PRN Nausea/Vomiting Azithromycin 500 mg/ Sodium 250 mls @ 250 mls/hr 01/16/17 15:00 Chloride IV Q24H [facility] Furosemide 100 mg/ Sodium 100 mls @ 3 mls/hr 01/16/17 15:30 Chloride IV TITRATE [facility] Protocol Insulin Aspart 0 unit 01/16/17 17:00 Novolog SUBCUT QIDACANDBED [facility] Protocol Lorazepam 1 mg 01/16/17 13:51 Ativan IV Q6H PRN Anxiety Lorazepam 2 mg 01/16/17 13:55 Ativan IVPUSH Q4H PRN Seizures Magnesium Sulfate 1 dose 01/16/17 14:00 Pharmacy To Dose - Magnesium Replacement .XX ASDIRECTED [facility] Methylprednisolone Sodium Succinate 80 mg 01/16/17 16:00 Solu-Medrol IVPUSH Q8H [facility] Metoprolol Tartrate 5 mg 01/16/17 13:55 Lopressor IVPUSH Q4H PRN Tachycardia Morphine Sulfate 2 mg 01/16/17 13:47 01/16/17 14:11 Morphine IVPUSH 01/21/17 13:51 2 mg Q4H PRN Administration Other Ondansetron HCl 4 mg 01/16/17 13:51 Zofran IV Q6H PRN Nausea/Vomiting Polyethylene Glycol 17 gm 01/16/17 13:51 Miralax PO DAILY PRN Constipation Potassium Chloride 1 dose 01/16/17 14:00 Pharmacy To Dose - Potassium Replacement .XX ASDIRECTED [facility] Senna/Docusate Sodium 1 tab 01/16/17 13:51 Senna Plus PO BID PRN Constipation Sodium Chloride 10 ml 01/16/17 10:44 01/16/17 11:04 Saline Flush FLUSH 10 ml ASDIRECTED PRN Administration Keep Vein Open Temazepam 15 mg 01/16/17 13:51 Restoril PO BEDTIME PRN Sleep Discontinued Medications Generic Name Dose Route Start Last Admin Trade Name Freq PRN Reason Stop Dose Admin Albuterol/Ipratropium 3 ml 01/16/17 10:45 01/16/17 10:50 Duoneb 3.0-0.5 Mg/3 Ml NEB 01/16/17 10:46 3 ml ONETIME ONE Administration Albuterol/Ipratropium 3 ml 01/16/17 10:48 01/16/17 10:51 Duoneb 3.0-0.5 Mg/3 Ml NEB 01/16/17 10:49 3 ml ONETIME ONE Administration Furosemide 40 mg 01/16/17 11:33 01/16/17 12:02 Lasix IVPUSH 01/16/17 11:34 40 mg NOW ONE Administration Hydrochlorothiazide 12.5 mg 01/17/17 13:59 Hydrochlorothiazide PO 01/17/17 14:00 DAILY ONE Piperacillin Sod/Tazobactam 100 mls @ 200 mls/hr 01/16/17 11:14 01/16/17 11: 26 Sod 4.5 gm/ Sodium Chloride IV 01/16/17 11:43 200 mls/hr ONETIME ONE Administration Vancomycin HCl 2 gm/ Sodium 500 mls @ 250 mls/hr 01/16/17 11:23 01/16/17 12: 05 Chloride IV 01/16/17 13:13 250 mls/hr ONETIME ONE Administration Azithromycin 500 mg/ Sodium 250 mls @ 250 mls/hr 01/16/17 13:56 Chloride IV 01/16/17 14:55 ONETIME ONE Methylprednisolone Sodium Succinate 125 mg 01/16/17 10:45 01/16/17 10:57 Solu-Medrol IVPUSH 01/16/17 10:46 125 mg ONETIME ONE Administration - Re-Assessments/Exams Free Text/Narrative Re-Assessment/Exam: 01/16/17 15:10 EKG shows normal sinus rhythm, deep T-wave inversions in leads V2, V3, V4, new compared to prior, no significant ST elevation. Chest x-ray shows mild cardiomegaly and mild interstitial haziness, difficult to rule out pneumonia or pulmonary edema. Labs are significant for very elevated BNP with no baseline in our system, renal insufficiency, elevated white count. Given elevated white count, tachycardia, and increased cough we'll treat with broad-spectrum antibiotics. I suspect that he has multifactorial causes of his shortness of breath, with components of possible infection, CHF, and or COPD. Discussed with Dr. Yuan who agrees to admit the patient to the ICU. He is feeling somewhat better after [id number] nebulizer treatments, steroids, and Lasix. Departure - Departure Time of Disposition: 12:27 Disposition: Admitted As Inpatient 66 Clinical Impression: Hypoxia, Respiratory distress, Renal insufficiency Pneumonia Qualifiers: Pneumonia type: due to unspecified organism Laterality: bilateral Lung location : lower lobe of lung Qualified Code(s): J18.9 - Pneumonia, unspecified organism Congestive heart failure Qualifiers: Congestive heart failure type: unspecified congestive heart failure type Congestive heart failure chronicity: acute Qualified Code(s): I50.9 - Heart failure, unspecified - Discharge Information Critical Care Note - Critical Care Note Total Time (mins): 30 - My Orders Last 24 Hours: My Active Orders 01/16/17 10:44 EKG 12 Lead [EKG Documentation Completion] [RC] STAT Sodium Chloride 0.9% [Saline Flush] 10 ml FLUSH ASDIRECTED PRN Blood Culture x2 Reflex Set [OM.PC] Stat Peripheral IV Insertion Adult [OM.PC] Routine 01/16/17 10:45 Peripheral IV Care [RC] . DIRECTED RT Aerosol Therapy [RC] ASDIRECTED 01/16/17 10:48 RT Aerosol Therapy [RC] ASDIRECTED 01/16/17 10:59 CULTURE BLOOD [BC] Stat 01/16/17 11:23 CULTURE BLOOD [BC] Stat 01/16/17 13:42 Patient Status [ADT] Routine - Assessment/Plan Last 24 Hours: My Active Orders 01/16/17 10:44 EKG 12 Lead [EKG Documentation Completion] [RC] STAT Sodium Chloride 0.9% [Saline Flush] 10 ml FLUSH ASDIRECTED PRN Blood Culture x2 Reflex Set [OM.PC] Stat Peripheral IV Insertion Adult [OM.PC] Routine 01/16/17 10:45 Peripheral IV Care [RC] . DIRECTED RT Aerosol Therapy [RC] ASDIRECTED 01/16/17 10:48 RT Aerosol Therapy [RC] ASDIRECTED 01/16/17 10:59 CULTURE BLOOD [BC] Stat 01/16/17 11:23 CULTURE BLOOD [BC] Stat 01/16/17 13:42 Patient Status [ADT] Routine
[2017-01-16] MEDS: Sodium Chloride 0.9% 10 ML Syringe FLUSH PRN (11:04)
[2017-01-16] MEDS ORDERED: Piperacillin/Tazobactam 4.5 GM in Sodium Chloride 0.9% 100 ML IV ONE (11:14)
[2017-01-16] MEDS ORDERED: Vancomycin 2 GM in Sodium Chloride 0.9% 500 ML IV ONE (11:23)
[2017-01-16] MEDS ORDERED: Furosemide 40 MG/4 ML VIAL IVPUSH ONE (11:33)
--- NOTE | 2017-01-16 12:25 | CR ---
Chest: Portable view of the chest was obtained. Comparison: Previous chest x-ray of 12/25/16. Heart is enlarged. Atelectasis is seen within both lung bases. Lungs otherwise are clear. Bony structures are grossly intact. Impression: 1. Mild bibasilar atelectasis. Mild cardiomegaly. 2. Nothing acute is otherwise seen on portable chest x-ray. Diagnostic code #2
--- NOTE | 2017-01-16 12:48 | PCM.SN ---
- Free Text/Narrative Note: Start: 1154 Stop: 1204 IV start, 22 gauge to right inner wrist times one attempt.
--- NOTE | 2017-01-16 13:46 | PCM.HP ---
H&P History of Present Illness - General Date of Service: 01/16/17 Admit Problem/Dx: Admission Diagnosis/Problem Admission Diagnosis/Problem Respiratory failure with hypoxia Source of Information: Patient, Old Records, Provider, RN Notes Reviewed, Significant Other History Limitations: Reports: Respiratory Distress - History of Present Illness Initial Comments - Free Text/Narative: This is a 56 yo white male with past medical hx/o Obesity and Chronic Back Pain who comes to the emergency department with complaints of worsening shortness of breath. Patient was seen here in ED on 12/24/2016 due to acute respiratory failure. At that time, he was intubated and shipped to [facility] for upper level of care. He was recently discharged in [facility] on 01/05/2017. He was told he had pneumonia. Patient has done fairly well since discharge. However starting 3-4 days ago, he develops the same symptom and has aggressively gotten worse since then. Currently, he is on supplemental O2. And he has been scheduled for sleep study in [facility]. Patient no longer smokes since his most recent hospitalization. His initial work up in ED shows, a CBC remarkable for WBC of 13.21, neutrophils of 11.03, lymphocytes of 1.05, and monocytes of 0.93. His chemistry is remarkable for sodium of 135, BUN of 20, creatinine 1.7, glucose 181, total bilirubin 8.2, alkaline phosphatase of 210, CRP of 24.3, Albulim of 2.8, and proBNP level of 10,948. His UA is negative for UTI. Chest x-ray report reads mild bibasilar atelectasis and mild cardiomegaly. No acute abnormal findings. Patient received initial treatment in ED before he was sent to the unit for further treatment. Patient is being admitted for acute respiratory failure. He is full code. Right Chest Pain Score (Numeric/FACES): 3 - Related Data Allergies/Adverse Reactions: Allergies Allergy/AdvReac Type Severity Reaction Status Date / Time No Known Allergies Allergy Verified 01/16/17 10:26 Home Medications: Home Meds Albuterol [Take Home: Albuterol 6.7 GM, 1 INH Pack] 2 puff BID PRN 01/16/17 [ History] Furosemide [Lasix] 40 mg PO ACBREAKFAST 01/16/17 [History] Past Medical History - Past Health History Medical/Surgical History: Denies Medical/Surgical History Respiratory History: Reports: Sleep Apnea (untreated) Other Respiratory History: sleep apnea Musculoskeletal History: Reports: Back Pain, Chronic Endocrine/Metabolic History: Reports: Obesity/BMI 30+ Social & Family History - Tobacco Use Smoking Status *Q: Current Every Day Smoker Years of Tobacco use: 30 Packs/Tins Daily: 1 Used Tobacco, but Quit: Yes Month Tobacco Last Used: december 2016 - Caffeine Use Caffeine Use: Reports: Coffee, Energy Drinks, Soda - Recreational Drug Use Recreational Drug Use: No - Living Situation & Occupation Living situation: Reports: , Alone Occupation: Employed ([employer]) H&P Review of Systems - Review of Systems: Review Of Systems: See Below General: Reports: Chills, Malaise, Weakness, Fatigue. Denies: Fever HEENT: Reports: No Symptoms Pulmonary: Reports: Shortness of Breath, Cough Cardiovascular: Reports: Dyspnea on Exertion, Edema. Denies: Chest Pain, Lightheadedness Gastrointestinal: Denies: Abdominal Pain, Constipation, Diarrhea, Difficulty Swallowing, Nausea, Vomiting Genitourinary: Reports: No Symptoms Musculoskeletal: Reports: No Symptoms Skin: Reports: Change in Color Psychiatric: Denies: Confusion, Depression, Anxiety, Hallucinations Neurological: Denies: Confusion, Difficulty Walking, Weakness, Gait Disturbance Hematologic/Lymphatic: Reports: No Symptoms Immunologic: Reports: No Symptoms Exam - Exam Exam: See Below - Vital Signs Vital Signs: Last Vital Signs Temp 37.0 C 01/16/17 11:08 Pulse 110 H 01/16/17 11:08 Resp 34 H 01/16/17 11:08 BP 130/81 01/16/17 11:08 Pulse Ox 91 L 01/16/17 11:08 Weight: 159.665 kg - Exam Quality Assessment: Supplemental Oxygen General: Alert, Oriented, Cooperative, Moderate Distress, Other (Morbidly Obese) HEENT: Conjunctiva Clear, EACs Clear, EOMI, Hearing Intact, Mucosa Moist & [place] , Nares Patent, Normal Nasal Septum, Posterior Pharynx Clear, Pupils Equal, Pupils Reactive Neck: Supple, Trachea Midline, +2 Carotid Pulse wo Bruit, Full Range of Motion, Other (Short and thick). No: JVD Lungs: Normal Respiratory Effort, Decreased Breath Sounds Cardiovascular: Regular Rate, Regular Rhythm GI/Abdominal Exam: Normal Bowel Sounds, Soft, Non-Tender, No Organomegaly, No Distention, No Abnormal Bruit, No Mass, Other (Obese) (Male) Exam: Deferred Rectal (Males) Exam: Deferred Back Exam: Normal Inspection, Decreased Range of Motion Extremities: Normal Inspection, Normal Range of Motion, Non-Tender, No Pedal Edema, Normal Capillary Refill, Other (hyperpigmention on bilateral lower extremity) Peripheral Pulses: 1+: Posterior Tibial (L), Posterior Tibial (R), Dorsalis Pedis (L), Dorsalis Pedis (R) Skin: Warm, Dry, Intact Neuro Extensive - Mental Status: Oriented x3, Normal Cognition, Memory Intact Neuro Extensive - Motor, Sensory, Reflexes: CN II-XII Intact (fairly intact), Abnormal Gait Psychiatric: Alert, Normal Affect, Normal Mood - Patient Data Result Diagrams: 01/16/17 10:35 01/16/17 10:35 *Q Meaningful Use (ADM) - VTE *Q VTE Criteria *Q: - Stroke *Q Stroke Criteria *Q: - AMI *Q AMI Criteria *Q: Problem List Initiated/Reviewed/Updated: Yes Orders Last 24hrs: Medication Orders Sodium Chloride (Saline Flush) 10 ml FLUSH ASDIRECTED PRN PRN Reason: Keep Vein Open Last Admin: 01/16/17 11:04 Dose: 10 ml Assessment/Plan Comment:: Assessment/Plan: Acute: Acute Hypoxic Respiratory Failure - 2/2 AECOPD and or combined Acute Heart Failure - 83% in ED, Tachypneic with RR in the upper 20s-30s - He is currently on 10 L Simple Mask - IVP PRN Morphine and RT Care - Treat as below AECOPD - Has hx/o COPD - Hx/o Smoking, Quit after his recent hospitalization in [place] - IV Steroids, IV Bronchodilators, IV Magnesium, RT care - Supplemental O2 and IV Azithromycin Acute Heart Failure - Unknown EF - Per patient he was never told or diagnosed with HF before - He never had 2D echo that he could remember when got hospitalized in [place] - ProBNP almost 11k - Heart Failure Procotol: Diuretics, Salt/Fluid Restrictions, 2D echo and daily weights Renal Insufficiency - Cr last visit was 1.4, now 1.7 - GFR still Stage 3 - Monitor Elevated BS - No hx/o DM - Has been getting steroids - He is Obese with metabolic syndrome features - BS is 181 - Screen for DM w/ A1C - ISS and Accu-check QID Morbid Obesity - BMI 49 - Will check TFT - Dietary consult for weight management Recent PNA - Completed treatment in [place] - Will monitor Probable MARCIE - He has been scheduled for sleep study in [place] - Will assess for STOP BANG Plan: Admit to ICU due high risk for further respiratory decline, he was intubated last time Routine AM Labs Resume Home Meds PT/OT consult Will obtain chart from Vern Adamson/LIZZIE for d/c planning Additional orders as above Code status: 1
[2017-01-16] MEDS ORDERED: Acetaminophen 325 MG Tab PO PRN (13:47)
[2017-01-16] MEDS ORDERED: Acetaminophen/HYDROcodone 325-5 MG Tab PO PRN (13:47)
[2017-01-16] MEDS ORDERED: Bisacodyl 5 MG Tab PO PRN (13:51)
[2017-01-16] MEDS ORDERED: Docusate Sodium 100 MG Cap PO PRN (13:51)
[2017-01-16] MEDS ORDERED: LORazepam 2 MG/ML MDV IV PRN (13:51)
[2017-01-16] MEDS ORDERED: Promethazine 12.5 MG in Sodium Chloride 0.9% 50 ML IV PRN (13:51)
[2017-01-16] MEDS ORDERED: Ondansetron 4 MG/2 ML SDV IV PRN (13:51)
[2017-01-16] MEDS ORDERED: Polyethylene Glycol 3350 Powder 17 GM Packet PO PRN (13:51)
[2017-01-16] MEDS ORDERED: Temazepam 15 MG Cap PO PRN (13:51)
[2017-01-16] MEDS ORDERED: LORazepam 2 MG/ML MDV IVPUSH PRN (13:55)
[2017-01-16] MEDS ORDERED: Metoprolol Tartrate 5 MG/5 ML SDV IVPUSH PRN (13:55)
[2017-01-16] MEDS ORDERED: hydrALAZINE 20 MG/ML SDV IVPUSH PRN (13:55)
[2017-01-16] MEDS ORDERED: Magnesium Sulfate/Water 2 GM in Premix Bag 1 BAG IV ONE (13:55)
[2017-01-16] MEDS ORDERED: Azithromycin 500 MG in Sodium Chloride 0.9% 250 ML IV ONE (13:56)
[2017-01-16] MEDS: Morphine 2 MG/ML Syringe IVPUSH PRN ×2 (14:11→18:43)
[2017-01-16] MEDS: Furosemide 100 MG in Sodium Chloride 0.9% 90 ML IV SCH (14:30)
[2017-01-16] MEDS ORDERED: 50% Dextrose in Water 50 ML Syringe IVPUSH PRN (14:53)
[2017-01-16] MEDS: Heparin Sodium 5,000 Units/ML Vial SUBCUT SCH ×2 (15:29→23:52)
[2017-01-16] MEDS: Hydrochlorothiazide 12.5 MG Cap PO SCH (15:30)
[2017-01-16] MEDS: Azithromycin 500 MG in Sodium Chloride 0.9% 250 ML IV SCH (16:10)
[2017-01-16] MEDS: methylPREDNISolone Sodium Succinate 125 MG/2 ML SDV IVPUSH SCH ×2 (16:16→23:53)
[2017-01-16] MEDS: Albuterol/Ipratropium 3.0-0.5 MG/3 ML Neb Soln NEB PRN (16:31)
[2017-01-16] MEDS: Insulin Aspart 100 Units/ML 3 ML Pen SUBCUT SCH ×2 (17:49→21:15)
[2017-01-16] MEDS: glipiZIDE 5 MG Tab.ER PO SCH (21:15)
[2017-01-17] MEDS: Heparin Sodium 5,000 Units/ML Vial SUBCUT SCH ×3 (06:19→23:00)
[2017-01-17] MEDS: Hydrochlorothiazide 12.5 MG Cap PO SCH ×2 (06:19→13:48)
[2017-01-17] MEDS: Insulin Aspart 100 Units/ML 3 ML Pen SUBCUT SCH ×5 (06:42→20:59)
--- NOTE | 2017-01-17 07:53 | PCM.PN ---
- General Info Date of Service: 01/17/17 Admission Dx/Problem (Free Text): Admission Diagnosis/Problem Admission Diagnosis/Problem Respiratory failure with hypoxia Subjective Update: Follow Up Functional Status: Reports: Pain Controlled, Tolerating Diet, Urinating - Review of Systems General: Denies: Fever, Weakness, Fatigue, Malaise HEENT: Reports: No Symptoms Pulmonary: Denies: Shortness of Breath Cardiovascular: Denies: Chest Pain Gastrointestinal: Denies: Abdominal Pain, Nausea, Vomiting Genitourinary: Reports: No Symptoms Musculoskeletal: Reports: No Symptoms Skin: Denies: Cyanosis, Mottled, Pallor, Diaphoresis, Rash Neurological: Denies: Confusion, Pre-Existing Deficit, Difficulty Walking, Weakness, Gait Disturbance Psychiatric: Denies: Depression, Anxiety, Agitation, Hallucinations Systems Review Comment:: No overnight issues. He looks much better than yesterday. He states "I slept really good. Best sleep in a while". He is now on 5L NC sating at 89-92%. He states "I breath better". He has no new complaints. - Patient Data Vitals - Most Recent: Last Vital Signs Temp 36.0 C 01/17/17 07:36 Pulse 82 01/17/17 07:36 Resp 18 01/17/17 07:36 BP 93/73 01/17/17 07:36 Pulse Ox 93 L 01/17/17 07:36 Weight - Most Recent: 161.706 kg I&O - Last 24 Hours: Intake & Output 01/16/17 01/17/17 01/17/17 22:59 06:59 14:59 Intake Total 1330 592 Output Total 1125 570 Balance 205 22 Lab Results Last 24 Hours: Laboratory Results - last 24 hr 01/16/17 01/16/17 01/16/17 Range/Units 15:25 17:43 20:57 WBC (4.23-9.07) K/mm3 RBC (4.63-6.08) M/mm3 Hgb (13.7-17.5) gm/L Hct (40.1-51.0) % MCV (79.0-92.2) fl MCH (25.7-32.2) pg MCHC (32.2-35.5) g/dl RDW Std Deviation (35.1-43.9) fL Plt Count (163-337) K/mm3 MPV (9.4-12.3) fl Neut % (Auto) (34.0-67.9) % Lymph % (Auto) (21.8-53.1) % [place] % (Auto) (5.3-12.2) % Eos % (Auto) (0.8-7.0) Baso % (Auto) (0.1-1.2) % Neut # (Auto) (1.78-5.38) K/mm3 Lymph # (Auto) (1.32-3.57) K/mm3 [place] # (Auto) (0.30-0.82) K/mm3 Eos # (Auto) (0.04-0.54) K/mm3 Baso # (Auto) (0.01-0.08) K/mm3 Manual Slide Review Sodium (136-145) mEq/L Potassium (3.5-5.1) mEq/L Chloride (98-107) mEq/L Carbon Dioxide (21-32) mEq/L Anion Gap (5-15) BUN (7-18) mg/dL Creatinine (0.7-1.3) mg/dL Est Cr Clr Drug Dosing mL/min Estimated GFR (MDRD) (>60) mL/min BUN/Creatinine Ratio (14-18) Glucose (74-106) mg/dL POC Glucose 157 H 248 H 259 H (70-105) mg/dL Calcium (8.5-10.1) mg/dL Magnesium (1.8-2.4) mg/dl C-Reactive Protein (<1.0) mg/dL 01/17/17 01/17/17 01/17/17 Range/Units 06:10 06:10 06:24 WBC 14.68 H (4.23-9.07) K/mm3 RBC 5.00 (4.63-6.08) M/mm3 Hgb 13.9 (13.7-17.5) gm/L Hct 44.8 (40.1-51.0) % MCV 89.6 (79.0-92.2) fl MCH 27.8 (25.7-32.2) pg MCHC 31.0 L (32.2-35.5) g/dl RDW Std Deviation 54.0 H (35.1-43.9) fL Plt Count 146 L (163-337) K/mm3 MPV 11.5 (9.4-12.3) fl Neut % (Auto) 93.4 H (34.0-67.9) % Lymph % (Auto) 4.0 L (21.8-53.1) % [place] % (Auto) 2.4 L (5.3-12.2) % Eos % (Auto) 0 L (0.8-7.0) Baso % (Auto) 0.0 L (0.1-1.2) % Neut # (Auto) 13.72 H (1.78-5.38) K/mm3 Lymph # (Auto) 0.58 L (1.32-3.57) K/mm3 [place] # (Auto) 0.35 (0.30-0.82) K/mm3 Eos # (Auto) 0.00 L (0.04-0.54) K/mm3 Baso # (Auto) 0.00 L (0.01-0.08) K/mm3 Manual Slide Review Abnormal smear Sodium 136 (136-145) mEq/L Potassium 5.2 H (3.5-5.1) mEq/L Chloride 100 (98-107) mEq/L Carbon Dioxide 27 (21-32) mEq/L Anion Gap 14.2 (5-15) BUN 30 H (7-18) mg/dL Creatinine 1.6 H (0.7-1.3) mg/dL Est Cr Clr Drug Dosing 54.91 mL/min Estimated GFR (MDRD) 45 (>60) mL/min BUN/Creatinine Ratio 18.8 H (14-18) Glucose 190 H (74-106) mg/dL POC Glucose 167 H (70-105) mg/dL Calcium 9.3 (8.5-10.1) mg/dL Magnesium 2.7 H (1.8-2.4) mg/dl C-Reactive Protein 21.5 H* (<1.0) mg/dL Med Orders - Current: Current Medications Acetaminophen (Tylenol) 650 mg PO Q4H PRN PRN Reason: Pain (Mild 1-3)/fever Hydrocodone Bitart/Acetaminophen ([place] 325-5 Mg) 1 tab PO Q4H PRN PRN Reason: Pain (moderate 4-6) Albuterol/Ipratropium (Duoneb 3.0-0.5 Mg/3 Ml) 3 ml NEB Q4H PRN PRN Reason: Shortness Of Breath/wheezing Last Admin: 01/16/17 16:31 Dose: 3 ml Bisacodyl (Dulcolax) 5 mg PO DAILY PRN PRN Reason: Constipation Dextrose/Water (Dextrose 50% In Water) 50 ml IVPUSH ASDIRECTED PRN PRN Reason: Hypoglycemia Docusate Sodium (Colace) 100 mg PO BID PRN PRN Reason: Constipation Glipizide (Glucotrol Xl) 5 mg PO BID [facility] Last Admin: 01/16/17 21:15 Dose: 5 mg Heparin Sodium (Porcine) (Heparin Sodium) 5,000 units SUBCUT Q8H [facility] Last Admin: 01/17/17 06:19 Dose: 5,000 units Hydralazine HCl (Apresoline) 20 mg IVPUSH Q4H PRN PRN Reason: Hypertension Hydrochlorothiazide (Hydrochlorothiazide) 12.5 mg PO BIDDIURETIC [facility] Last Admin: 01/17/17 06:19 Dose: 12.5 mg Promethazine HCl 12.5 mg/ (Sodium Chloride) 50.5 mls @ 100 mls/hr IV Q6H PRN PRN Reason: Nausea/Vomiting Azithromycin 500 mg/ Sodium (Chloride) 250 mls @ 250 mls/hr IV Q24H [facility] Last Admin: 01/16/17 16:10 Dose: 250 mls/hr Furosemide 100 mg/ Sodium (Chloride) 100 mls @ 3 mls/hr IV TITRATE [facility] PRN Reason: Protocol Last Admin: 01/16/17 14:30 Dose: 3 mls/hr Insulin Aspart (Novolog) 0 unit SUBCUT QIDACANDBED [facility] PRN Reason: Protocol Last Admin: 01/17/17 06:42 Dose: 2 units Lorazepam (Ativan) 1 mg IV Q6H PRN PRN Reason: Anxiety Lorazepam (Ativan) 2 mg IVPUSH Q4H PRN PRN Reason: Seizures Magnesium Sulfate (Pharmacy To Dose - Magnesium Replacement) 1 dose .XX ASDIRECTED [facility] Methylprednisolone Sodium Succinate (Solu-Medrol) 80 mg IVPUSH Q8H [facility] Last Admin: 01/16/17 23:53 Dose: 80 mg Metoprolol Tartrate (Lopressor) 5 mg IVPUSH Q4H PRN PRN Reason: Tachycardia Morphine Sulfate (Morphine) 2 mg IVPUSH Q4H PRN PRN Reason: Other Stop: 01/21/17 13:51 Last Admin: 01/16/17 18:43 Dose: 2 mg Ondansetron HCl (Zofran) 4 mg IV Q6H PRN PRN Reason: Nausea/Vomiting Polyethylene Glycol (Miralax) 17 gm PO DAILY PRN PRN Reason: Constipation Potassium Chloride (Pharmacy To Dose - Potassium Replacement) 1 dose .XX ASDIRECTED [facility] Senna/Docusate Sodium (Senna Plus) 1 tab PO BID PRN PRN Reason: Constipation Sodium Chloride (Saline Flush) 10 ml FLUSH ASDIRECTED PRN PRN Reason: Keep Vein Open Last Admin: 01/16/17 11:04 Dose: 10 ml Temazepam (Restoril) 15 mg PO BEDTIME PRN PRN Reason: Sleep Discontinued Medications Albuterol/Ipratropium (Duoneb 3.0-0.5 Mg/3 Ml) 3 ml NEB ONETIME ONE Stop: 01/16/17 10:46 Last Admin: 01/16/17 10:50 Dose: 3 ml Albuterol/Ipratropium (Duoneb 3.0-0.5 Mg/3 Ml) 3 ml NEB ONETIME ONE Stop: 01/16/17 10:49 Last Admin: 01/16/17 10:51 Dose: 3 ml Furosemide (Lasix) 40 mg IVPUSH NOW ONE Stop: 01/16/17 11:34 Last Admin: 01/16/17 12:02 Dose: 40 mg Hydrochlorothiazide (Hydrochlorothiazide) 12.5 mg PO DAILY ONE Stop: 01/17/17 14:00 Piperacillin Sod/Tazobactam (Sod 4.5 gm/ Sodium Chloride) 100 mls @ 200 mls/hr IV ONETIME ONE Stop: 01/16/17 11:43 Last Admin: 01/16/17 11:26 Dose: 200 mls/hr Vancomycin HCl 2 gm/ Sodium (Chloride) 500 mls @ 250 mls/hr IV ONETIME ONE Stop: 01/16/17 13:13 Last Admin: 01/16/17 12:05 Dose: 250 mls/hr Magnesium Sulfate 2 gm/ Premix 50 mls @ 25 mls/hr IV ONETIME ONE Stop: 01/16/17 15:54 Last Admin: 01/16/17 14:15 Dose: 25 mls/hr Azithromycin 500 mg/ Sodium (Chloride) 250 mls @ 250 mls/hr IV ONETIME ONE Stop: 01/16/17 14:55 Last Admin: 01/16/17 17:16 Dose: Not Given Methylprednisolone Sodium Succinate (Solu-Medrol) 125 mg IVPUSH ONETIME ONE Stop: 01/16/17 10:46 Last Admin: 01/16/17 10:57 Dose: 125 mg - Exam Quality Assessment: Supplemental Oxygen General: Alert, Oriented, Cooperative, No Acute Distress, Other (Morbid Obesity) HEENT: Pupils Equal, Pupils Reactive, EOMI, Mucous Membr. Moist/[place] Neck: Supple, Trachea Midline, No JVD. No: JVD Lungs: Normal Respiratory Effort, Decreased Breath Sounds Cardiovascular: Regular Rate, Regular Rhythm GI/Abdominal Exam: Normal Bowel Sounds, Soft, Non-Tender, No Organomegaly, No Distention, No Abnormal Bruit, No Mass (Male) Exam: Deferred Back Exam: Normal Inspection, Decreased Range of Motion Extremities: Normal Inspection, Normal Range of Motion, Non-Tender, No Pedal Edema, Normal Capillary Refill, Other (bilateral lower extremity edema) Peripheral Pulses: 2+: Dorsalis Pedis (L), Dorsalis Pedis (R) Skin: Warm, Dry, Intact Wound/Incisions: Healing Well Neurological: No New Focal Deficit Psy/Mental Status: Alert, Normal Affect, Normal Mood - Problem List Review Problem List Initiated/Reviewed/Updated: Yes - My Orders Last 24 Hours: My Active Orders 01/16/17 13:47 Height and Weight [RC] 04 Oxygen Therapy [RC] PRN Up With Assistance [RC] ASDIRECTED Up ad Nikky [RC] ASDIRECTED VTE/DVT Education [RC] 10,22 Vital Signs [RC] Q4HR Acetaminophen [Tylenol] 650 mg PO Q4H PRN Acetaminophen/HYDROcodone [[place] 325-5 MG] 1 tab PO Q4H PRN Morphine 2 mg IVPUSH Q4H PRN Resuscitation Status Routine 01/16/17 13:49 Cardiac Monitoring [RC] CONTINUOUS Intake and Output [RC] Q2HR Pulse Oximetry [RC] CONTINUOUS 01/16/17 13:51 Albuterol/Ipratropium [DuoNeb 3.0-0.5 MG/3 ML] 3 ml NEB Q4H PRN Bisacodyl [Dulcolax] 5 mg PO DAILY PRN Docusate Sodium [Colace] 100 mg PO BID PRN Docusate Sodium/Sennosides [Senna Plus] 1 tab PO BID PRN LORazepam [Ativan] 1 mg IV Q6H PRN Ondansetron [Zofran] 4 mg IV Q6H PRN Polyethylene Glycol 3350 [MiraLAX] 17 gm PO DAILY PRN Promethazine [Phenergan] 12.5 mg Sodium Chloride 0.9% [Normal Saline] 50 ml IV Q6H Temazepam [Restoril] 15 mg PO BEDTIME PRN 01/16/17 13:52 RT Aerosol Therapy [RC] ASDIRECTED 01/16/17 13:53 Consult to Case Management [CONS] Routine Consult to Payment Analyst [CONS] Routine Consult to Spiritual Care [CONS] Routine OT Evaluation and Treatment [CONS] Routine PT Evaluation and Treatment [CONS] Routine Respiratory Care Assess and Treatment [CONS] Routine CULTURE SPUTUM + SMEAR [RM] Stat 01/16/17 13:55 LORazepam [Ativan] 2 mg IVPUSH Q4H PRN Metoprolol Tartrate [Lopressor] 5 mg IVPUSH Q4H PRN hydrALAZINE [Apresoline] 20 mg IVPUSH Q4H PRN 01/16/17 13:57 Consult to Dietary [Consult to Java Web Developer] [CONS] Routine 01/16/17 14:00 Magnesium Rep Pharmacy to Dose [Pharmacy to Dose - Magnesium Replacement] 1 dose .XX ASDIRECTED Potassium Rep Pharmacy to Dose [Pharmacy to Dose - Potassium Replacement] 1 dose .XX ASDIRECTED 01/16/17 14:30 Hydrochlorothiazide 12.5 mg PO BIDDIURETIC 01/16/17 14:53 Blood Glucose Check, Bedside [RC] QIDACANDBED Dextrose 50% in Water 50 ml IVPUSH ASDIRECTED PRN 01/16/17 15:00 Azithromycin [Zithromax] 500 mg Sodium Chloride 0.9% [Normal Saline] 250 ml IV Q24H Heparin Sodium 5,000 units SUBCUT Q8H 01/16/17 15:30 Furosemide [Lasix] 100 mg Sodium Chloride 0.9% [Normal Saline] 90 ml IV TITRATE 01/16/17 16:00 methylPREDNISolone Sod Succ [Solu-MEDROL] 80 mg IVPUSH Q8H 01/16/17 17:00 Insulin Aspart [NovoLOG] See Protocol SUBCUT QIDACANDBED 01/16/17 21:00 glipiZIDE [Glucotrol XL] 5 mg PO BID 01/16/17 Dinner Fluid Restriction [DIET] Heart Healthy Diet [DIET] Sodium Restricted Diet [DIET] 01/17/17 06:10 BASIC METABOLIC PANEL,BMP [CHEM] AM C-REACTIVE PROTEIN [CHEM] AM MAGNESIUM [CHEM] AM PRO B-TYPE NATRIUR PEPT,BNPPRO [CHEM] DAILY 01/18/17 05:11 BASIC METABOLIC PANEL,BMP [CHEM] AM C-REACTIVE PROTEIN [CHEM] AM CBC WITH AUTO DIFF [HEME] AM MAGNESIUM [CHEM] AM PRO B-TYPE NATRIUR PEPT,BNPPRO [CHEM] DAILY 01/19/17 05:11 Chest 2V [CR] AM BASIC METABOLIC PANEL,BMP [CHEM] AM C-REACTIVE PROTEIN [CHEM] AM CBC WITH AUTO DIFF [HEME] AM MAGNESIUM [CHEM] AM PRO B-TYPE NATRIUR PEPT,BNPPRO [CHEM] DAILY 01/20/17 05:11 BASIC METABOLIC PANEL,BMP [CHEM] AM C-REACTIVE PROTEIN [CHEM] AM CBC WITH AUTO DIFF [HEME] AM MAGNESIUM [CHEM] AM PRO B-TYPE NATRIUR PEPT,BNPPRO [CHEM] DAILY 01/21/17 05:11 BASIC METABOLIC PANEL,BMP [CHEM] AM C-REACTIVE PROTEIN [CHEM] AM CBC WITH AUTO DIFF [HEME] AM MAGNESIUM [CHEM] AM PRO B-TYPE NATRIUR PEPT,BNPPRO [CHEM] DAILY - Plan Plan:: Assessment/Plan: Acute: Acute Hypoxic Respiratory Failure, Improving, he is now on 5L NC sating at 89-92 % - 2/2 AECOPD and or combined Acute Heart Failure - 83% in ED, Tachypneic with RR in the upper 20s-30s - He is currently on 10 L Simple Mask - IVP PRN Morphine and RT Care - Treat as below AECOPD, Improved - Has hx/o COPD - Hx/o Smoking, Quit after his recent hospitalization in [place] - IV Steroids, IV Bronchodilators, IV Magnesium, RT care - Supplemental O2 and IV Azithromycin Acute Heart Failure - Unknown EF - Per patient he was never told or diagnosed with HF before - He never had 2D echo that he could remember when got hospitalized in [place] - ProBNP went up from yesterday - Continue Lasix drip with HCTZ - Heart Failure Procotol: Diuretics, Salt/Fluid Restrictions, 2D echo and daily weights New Onset DM2 - No hx/o DM - Has been getting steroids - He is Obese with metabolic syndrome features - BS is 181 - A1C is 6.8 - ISS and Accu-check QID Morbid Obesity - BMI 49 - TFT wnl - Advised to loose weight - Dietary consult for weight management Recent PNA - Completed treatment in [place] - IV Azithromycin - WBC is up 14.68 from 13.21 and CRP is considerably elevated at 21 - Will add IV Rocephin current Abx Probable MARCIE/OHS - He has been scheduled for sleep study in [place] - STOP BANG score is 7 suggestive of High Risk of MARCIE Chronic: CKD Stage 3, At baseline - Cr last visit was 1.4 ---> 1.7 ---> 1.6 - GFR still Stage 3 - Continue to monitor Plan: Patient is much better clinically Transfer to Med-Surg with Tele Routine AM Labs Continue PT/OT/RT consult SW/CM for d/c planning Additional orders as above Code status: 1 Reviewed chart from [facility] shows patient had diagnoses of acute respiratory failure with hypoxia and hypercapnia, sleep apnea, severe obesity, heart failure, pneumonia, chronic bronchitis, and respiratory insufficiency.
[2017-01-17] MEDS: glipiZIDE 5 MG Tab.ER PO SCH ×2 (09:03→20:52)
[2017-01-17] MEDS: methylPREDNISolone Sodium Succinate 125 MG/2 ML SDV IVPUSH SCH ×3 (09:04→23:03)
[2017-01-17] MEDS: Sodium Chloride 0.9% 10 ML Syringe FLUSH PRN (09:04)
[2017-01-17] MEDS: Morphine 15 MG Tab.ER PO SCH ×2 (09:16→16:31)
[2017-01-17] MEDS: cefTRIAXone 1 GM in Sodium Chloride 0.9% 100 ML IV SCH (09:18)
[2017-01-17] MEDS ORDERED: Hydrochlorothiazide 12.5 MG Cap PO ONE (13:59)
[2017-01-17] MEDS: Albuterol/Ipratropium 3.0-0.5 MG/3 ML Neb Soln NEB PRN (14:08)
[2017-01-17] MEDS: Furosemide 100 MG in Sodium Chloride 0.9% 90 ML IV SCH (14:24)
[2017-01-17] MEDS: Azithromycin 500 MG in Sodium Chloride 0.9% 250 ML IV SCH (14:32)
[2017-01-18] MEDS: Morphine 15 MG Tab.ER PO SCH ×3 (01:08→17:06)
[2017-01-18] MEDS: Hydrochlorothiazide 12.5 MG Cap PO SCH ×2 (05:40→14:12)
[2017-01-18] MEDS: Heparin Sodium 5,000 Units/ML Vial SUBCUT SCH ×2 (06:03→14:16)
[2017-01-18] MEDS: methylPREDNISolone Sodium Succinate 125 MG/2 ML SDV IVPUSH SCH ×2 (07:16→15:34)
[2017-01-18] MEDS: Insulin Aspart 100 Units/ML 3 ML Pen SUBCUT SCH ×3 (07:48→19:34)
--- NOTE | 2017-01-18 07:49 | PCM.PN ---
- General Info Date of Service: 01/18/17 Admission Dx/Problem (Free Text): Admission Diagnosis/Problem Admission Diagnosis/Problem Respiratory failure with hypoxia Subjective Update: Follow Up Functional Status: Reports: Pain Controlled, Tolerating Diet, Urinating. Denies : Ambulating - Review of Systems General: Denies: Fever, Weakness, Fatigue, Malaise, Chills HEENT: Denies: No Symptoms Pulmonary: Reports: Shortness of Breath (but getting better) Cardiovascular: Reports: Dyspnea on Exertion, Edema (improving). Denies: Chest Pain Gastrointestinal: Denies: Abdominal Pain, Nausea, Vomiting Genitourinary: Reports: No Symptoms Musculoskeletal: Reports: No Symptoms Skin: Denies: Cyanosis, Bruising, Rash Neurological: Denies: Confusion, Difficulty Walking, Weakness, Gait Disturbance Psychiatric: Denies: Confusion, Depression, Anxiety, Agitation, Hallucinations Systems Review Comment:: No overnight or acute issues. He continues to get better. He is now on 3L NC sating at 89-92%. He has also been ambulating but not much, he still gets symptomatic. His WBC is now 17 and CRP is 11.9. His BNP this am is 6408 (44396 yesterday). He now weighs 160 kg. - Patient Data Vitals - Most Recent: Last Vital Signs Temp 36.2 C 01/18/17 04:00 Pulse 73 01/18/17 04:00 Resp 21 H 01/18/17 04:00 BP 126/78 01/18/17 04:00 Pulse Ox 92 L 01/18/17 07:42 Weight - Most Recent: 160.209 kg I&O - Last 24 Hours: Intake & Output 01/17/17 01/18/17 01/18/17 22:59 06:59 14:59 Intake Total 1174 568 Output Total 760 645 Balance 414 -77 Lab Results Last 24 Hours: Laboratory Results - last 24 hr 01/17/17 01/17/17 01/17/17 Range/Units 06:10 11:42 17:33 WBC (4.23-9.07) K/mm3 RBC (4.63-6.08) M/mm3 Hgb (13.7-17.5) gm/L Hct (40.1-51.0) % MCV (79.0-92.2) fl MCH (25.7-32.2) pg MCHC (32.2-35.5) g/dl RDW Std Deviation (35.1-43.9) fL Plt Count (163-337) K/mm3 MPV (9.4-12.3) fl Neut % (Auto) (34.0-67.9) % Lymph % (Auto) (21.8-53.1) % Heard % (Auto) (5.3-12.2) % Eos % (Auto) (0.8-7.0) Baso % (Auto) (0.1-1.2) % Neut # (Auto) (1.78-5.38) K/mm3 Lymph # (Auto) (1.32-3.57) K/mm3 Heard # (Auto) (0.30-0.82) K/mm3 Eos # (Auto) (0.04-0.54) K/mm3 Baso # (Auto) (0.01-0.08) K/mm3 Manual Slide Review Sodium 136 (136-145) mEq/L Potassium 5.2 H (3.5-5.1) mEq/L Chloride 100 (98-107) mEq/L Carbon Dioxide 27 (21-32) mEq/L Anion Gap 14.2 (5-15) BUN 30 H (7-18) mg/dL Creatinine 1.6 H (0.7-1.3) mg/dL Est Cr Clr Drug Dosing 54.91 mL/min Estimated GFR (MDRD) 45 (>60) mL/min BUN/Creatinine Ratio 18.8 H (14-18) Glucose 190 H (74-106) mg/dL POC Glucose 124 H 179 H (70-105) mg/dL Calcium 9.3 (8.5-10.1) mg/dL Magnesium 2.7 H (1.8-2.4) mg/dl C-Reactive Protein 21.5 H* (<1.0) mg/dL [id number] Pept 81235 H (0-125) pg/mL 01/17/17 01/18/17 01/18/17 Range/Units 20:45 06:05 06:05 WBC 17.07 H (4.23-9.07) K/mm3 RBC 4.93 (4.63-6.08) M/mm3 Hgb 13.5 L (13.7-17.5) gm/L Hct 44.2 (40.1-51.0) % MCV 89.7 (79.0-92.2) fl MCH 27.4 (25.7-32.2) pg MCHC 30.5 L (32.2-35.5) g/dl RDW Std Deviation 53.2 H (35.1-43.9) fL Plt Count 157 L (163-337) K/mm3 MPV 11.1 (9.4-12.3) fl Neut % (Auto) 92.6 H (34.0-67.9) % Lymph % (Auto) 3.7 L (21.8-53.1) % Heard % (Auto) 3.4 L (5.3-12.2) % Eos % (Auto) 0 L (0.8-7.0) Baso % (Auto) 0.1 (0.1-1.2) % Neut # (Auto) 15.80 H (1.78-5.38) K/mm3 Lymph # (Auto) 0.64 L (1.32-3.57) K/mm3 Heard # (Auto) 0.58 (0.30-0.82) K/mm3 Eos # (Auto) 0.00 L (0.04-0.54) K/mm3 Baso # (Auto) 0.01 (0.01-0.08) K/mm3 Manual Slide Review Abnormal smear Sodium 135 L (136-145) mEq/L Potassium 4.4 (3.5-5.1) mEq/L Chloride 99 (98-107) mEq/L Carbon Dioxide 28 (21-32) mEq/L Anion Gap 12.4 (5-15) BUN 39 H (7-18) mg/dL Creatinine 1.5 H (0.7-1.3) mg/dL Est Cr Clr Drug Dosing 58.57 mL/min Estimated GFR (MDRD) 48 (>60) mL/min BUN/Creatinine Ratio 26.0 H (14-18) Glucose 152 H (74-106) mg/dL POC Glucose 225 H (70-105) mg/dL Calcium 9.3 (8.5-10.1) mg/dL Magnesium 2.3 (1.8-2.4) mg/dl C-Reactive Protein 11.9 H* (<1.0) mg/dL [id number]-M-Vjfhffjknbs Pept 6408 H (0-125) pg/mL Med Orders - Current: Current Medications Acetaminophen (Tylenol) 650 mg PO Q4H PRN PRN Reason: Pain (Mild 1-3)/fever Hydrocodone Bitart/Acetaminophen (Dahlgren 325-5 Mg) 1 tab PO Q4H PRN PRN Reason: Pain (moderate 4-6) Albuterol/Ipratropium (Duoneb 3.0-0.5 Mg/3 Ml) 3 ml NEB Q4H PRN PRN Reason: Shortness Of Breath/wheezing Last Admin: 01/17/17 14:08 Dose: 3 ml Bisacodyl (Dulcolax) 5 mg PO DAILY PRN PRN Reason: Constipation Dextrose/Water (Dextrose 50% In Water) 50 ml IVPUSH ASDIRECTED PRN PRN Reason: Hypoglycemia Docusate Sodium (Colace) 100 mg PO BID PRN PRN Reason: Constipation Glipizide (Glucotrol Xl) 5 mg PO BID [facility] Last Admin: 01/17/17 20:52 Dose: 5 mg Heparin Sodium (Porcine) (Heparin Sodium) 5,000 units SUBCUT Q8H [facility] Last Admin: 01/18/17 06:03 Dose: 5,000 units Hydralazine HCl (Apresoline) 20 mg IVPUSH Q4H PRN PRN Reason: Hypertension Hydrochlorothiazide (Hydrochlorothiazide) 12.5 mg PO BIDDIURETIC [facility] Last Admin: 01/18/17 05:40 Dose: 12.5 mg Promethazine HCl 12.5 mg/ (Sodium Chloride) 50.5 mls @ 100 mls/hr IV Q6H PRN PRN Reason: Nausea/Vomiting Azithromycin 500 mg/ Sodium (Chloride) 250 mls @ 250 mls/hr IV Q24H [facility] Last Admin: 01/17/17 14:32 Dose: 250 mls/hr Furosemide 100 mg/ Sodium (Chloride) 100 mls @ 3 mls/hr IV TITRATE [facility] PRN Reason: Protocol Last Admin: 01/17/17 14:24 Dose: 3 mls/hr Ceftriaxone Sodium 1 gm/ (Sodium Chloride) 100 mls @ 200 mls/hr IV Q24H [facility] Last Admin: 01/17/17 09:18 Dose: 200 mls/hr Insulin Aspart (Novolog) 0 unit SUBCUT QIDACANDBED [facility] PRN Reason: Protocol Last Admin: 01/18/17 07:48 Dose: Not Given Lorazepam (Ativan) 1 mg IV Q6H PRN PRN Reason: Anxiety Lorazepam (Ativan) 2 mg IVPUSH Q4H PRN PRN Reason: Seizures Magnesium Sulfate (Pharmacy To Dose - Magnesium Replacement) 1 dose .XX ASDIRECTED [facility] Methylprednisolone Sodium Succinate (Solu-Medrol) 80 mg IVPUSH Q8H [facility] Last Admin: 01/18/17 07:16 Dose: 80 mg Metoprolol Tartrate (Lopressor) 5 mg IVPUSH Q4H PRN PRN Reason: Tachycardia Morphine Sulfate (Morphine) 2 mg IVPUSH Q4H PRN PRN Reason: Other Stop: 01/21/17 13:51 Last Admin: 01/16/17 18:43 Dose: 2 mg Morphine Sulfate (Ms Contin) 15 mg PO Q8H [facility] Last Admin: 01/18/17 01:08 Dose: 15 mg Ondansetron HCl (Zofran) 4 mg IV Q6H PRN PRN Reason: Nausea/Vomiting Polyethylene Glycol (Miralax) 17 gm PO DAILY PRN PRN Reason: Constipation Potassium Chloride (Pharmacy To Dose - Potassium Replacement) 1 dose .XX ASDIRECTED [facility] Senna/Docusate Sodium (Senna Plus) 1 tab PO BID PRN PRN Reason: Constipation Sodium Chloride (Saline Flush) 10 ml FLUSH ASDIRECTED PRN PRN Reason: Keep Vein Open Last Admin: 01/17/17 09:04 Dose: 10 ml Temazepam (Restoril) 15 mg PO BEDTIME PRN PRN Reason: Sleep Discontinued Medications Albuterol/Ipratropium (Duoneb 3.0-0.5 Mg/3 Ml) 3 ml NEB ONETIME ONE Stop: 01/16/17 10:46 Last Admin: 01/16/17 10:50 Dose: 3 ml Albuterol/Ipratropium (Duoneb 3.0-0.5 Mg/3 Ml) 3 ml NEB ONETIME ONE Stop: 01/16/17 10:49 Last Admin: 01/16/17 10:51 Dose: 3 ml Furosemide (Lasix) 40 mg IVPUSH NOW ONE Stop: 01/16/17 11:34 Last Admin: 01/16/17 12:02 Dose: 40 mg Hydrochlorothiazide (Hydrochlorothiazide) 12.5 mg PO DAILY ONE Stop: 01/17/17 14:00 Piperacillin Sod/Tazobactam (Sod 4.5 gm/ Sodium Chloride) 100 mls @ 200 mls/hr IV ONETIME ONE Stop: 01/16/17 11:43 Last Admin: 01/16/17 11:26 Dose: 200 mls/hr Vancomycin HCl 2 gm/ Sodium (Chloride) 500 mls @ 250 mls/hr IV ONETIME ONE Stop: 01/16/17 13:13 Last Admin: 01/16/17 12:05 Dose: 250 mls/hr Magnesium Sulfate 2 gm/ Premix 50 mls @ 25 mls/hr IV ONETIME ONE Stop: 01/16/17 15:54 Last Admin: 01/16/17 14:15 Dose: 25 mls/hr Azithromycin 500 mg/ Sodium (Chloride) 250 mls @ 250 mls/hr IV ONETIME ONE Stop: 01/16/17 14:55 Last Admin: 01/16/17 17:16 Dose: Not Given Methylprednisolone Sodium Succinate (Solu-Medrol) 125 mg IVPUSH ONETIME ONE Stop: 01/16/17 10:46 Last Admin: 01/16/17 10:57 Dose: 125 mg - Exam Quality Assessment: Supplemental Oxygen General: Alert, Oriented, Cooperative, No Acute Distress, Other (Morbid Obesity) HEENT: Pupils Equal, Pupils Reactive, EOMI, Mucous Membr. Moist/Wanda Neck: Supple, Trachea Midline, No JVD, No Thyromegaly Lungs: Normal Respiratory Effort, Decreased Breath Sounds Cardiovascular: Regular Rate, Regular Rhythm GI/Abdominal Exam: Normal Bowel Sounds, Soft, Non-Tender, No Organomegaly, No Distention, No Abnormal Bruit, No Mass (Male) Exam: Other (indwelling gupta catheter) Back Exam: CVA Tenderness (L) Extremities: Normal Inspection, Normal Range of Motion, Non-Tender, No Pedal Edema, Normal Capillary Refill Skin: Warm, Dry, Intact, Other (hyperpigmentation on bilateral lower extremity) Neurological: No New Focal Deficit Psy/Mental Status: Alert, Normal Affect, Normal Mood - Problem List Review Problem List Initiated/Reviewed/Updated: Yes - My Orders Last 24 Hours: My Active Orders 01/17/17 09:00 Morphine [MS Contin] 15 mg PO Q8H cefTRIAXone [Rocephin] 1 gm Sodium Chloride 0.9% [Normal Saline] 100 ml IV Q24H 01/17/17 10:32 Admission Status [Patient Status] [ADT] Routine 01/18/17 07:01 CULTURE SPUTUM + SMEAR [RM] Stat 01/19/17 05:11 Chest 2V [CR] AM BASIC METABOLIC PANEL,BMP [CHEM] AM C-REACTIVE PROTEIN [CHEM] AM CBC WITH AUTO DIFF [HEME] AM MAGNESIUM [CHEM] AM PRO B-TYPE NATRIUR PEPT,BNPPRO [CHEM] DAILY 01/20/17 05:11 BASIC METABOLIC PANEL,BMP [CHEM] AM C-REACTIVE PROTEIN [CHEM] AM CBC WITH AUTO DIFF [HEME] AM MAGNESIUM [CHEM] AM PRO B-TYPE NATRIUR PEPT,BNPPRO [CHEM] DAILY 01/21/17 05:11 BASIC METABOLIC PANEL,BMP [CHEM] AM C-REACTIVE PROTEIN [CHEM] AM CBC WITH AUTO DIFF [HEME] AM MAGNESIUM [CHEM] AM PRO B-TYPE NATRIUR PEPT,BNPPRO [CHEM] DAILY - Plan Plan:: Assessment/Plan: Acute: Acute Hypoxic Respiratory Failure, Continues to improve, he is now on 3L NC sating at 89-92% - 2/2 AECOPD and or combined Acute Heart Failure - 83% in ED, Tachypneic with RR in the upper 20s-30s - He is currently on 10 L Simple Mask - IVP PRN Morphine and RT Care - Treat as below AECOPD, Continues to improve - Has hx/o COPD - Hx/o Smoking, Quit after his recent hospitalization in [place] - IV Steroids, IV Bronchodilators, IV Magnesium, RT care - Supplemental O2 and IV Azithromycin/Rocephin - Changes IV steroids from 80 mg Q8H to 60 mg Q12H - Sputum Cx is negative Acute Heart Failure, Improving - Unknown EF - Per patient he was never told or diagnosed with HF before - He never had 2D echo that he could remember when got hospitalized in [place] - ProBNP [place] now 6408 [place] [address]72 - Continue Lasix drip with HCTZ until drip to done to day, d/c gupta cath after that - Heart Failure Procotol: Diuretics, Salt/Fluid Restrictions, 2D echo and daily weights New Onset DM2 - No hx/o DM - Has been getting steroids - He is Obese with metabolic syndrome features - BS on average is fairly stable, levels affected by current steroid use - A1C is 6.8 - ISS and Accu-check QID Morbid Obesity - BMI 49 - TFT wnl - Advised to loose weight - Dietary consult for weight management Recent PNA - Completed treatment in [place] - IV Azithromycin/Rocephin - WBC is up 14.68 from 13.21 and CRP is considerably elevated at 21 Probable MARCIE/OHS - He has been scheduled for sleep study in [place] - STOP BANG score is 7 suggestive of High Risk of MARCIE Chronic: CKD Stage 3, At baseline - Cr last visit was 1.4 ---> 1.7 ---> 1.6 - GFR still Stage 3 - Continue to monitor Plan: Patient remains clinically stable and continues to improve but he is not quite ready for d/c Routine AM Labs Continue PT/OT/RT consult SW/CM for d/c planning Additional orders as above Code status: 1 Possible d/c in 1-2 days
[2017-01-18] MEDS: glipiZIDE 5 MG Tab.ER PO SCH (08:22)
[2017-01-18] MEDS: Sodium Chloride 0.9% 10 ML Syringe FLUSH PRN (08:23)
[2017-01-18] MEDS: cefTRIAXone 1 GM in Sodium Chloride 0.9% 100 ML IV SCH (08:29)
[2017-01-18] MEDS: Albuterol/Ipratropium 3.0-0.5 MG/3 ML Neb Soln NEB PRN (08:42)
[2017-01-18] MEDS: Morphine 2 MG/ML Syringe IVPUSH PRN (11:05)
[2017-01-18] MEDS ORDERED: Aluminum Hydroxide/Magnesium Hydroxide/Simethicone Susp 30 ML Cup PO PRN (11:37)
[2017-01-18] MEDS: Azithromycin 500 MG in Sodium Chloride 0.9% 250 ML IV SCH (14:26)
[2017-01-18 16:28] VITALS: BP 105/87
[2017-01-18] MEDS ORDERED: Sodium Chloride 0.9% 0 ML ONE (17:53)
[2017-01-18] MEDS ORDERED: Sodium Chloride 0.9% 1,000 ML ONE (17:58)
--- NOTE | 2017-01-18 18:11 | PCM.SN ---
- Free Text/Narrative Note: Patient was found unresponsive with agonal breathing by nurse on routine checks. Code blue was activated. Attempted to reach son Michael at [phone] but w/o any success. I personally left a message to call us back immediately regarding his dad's sudden change in status.
[2017-01-18] MEDS ORDERED: Sodium Bicarbonate 8.4% 50 MEQ/50 ML Syringe ONE ×2 (18:19→20:00)
--- NOTE | 2017-01-18 18:33 | PCM.SN ---
- Free Text/Narrative Note: start: 1799 stop: 1826 Anesthesia called for efrain collazo. Upon arrival patient in recliner with CPR in progress. PRERNA Malik at head of bed ready to intubate, and did so successfully with bilateral breath sounds noted and ETCO2 noted as well. Full ACLS protocol in place with various rhythms of PEA, Vfib, and eventually asystole. Time of announced by Dr. Bauman.
--- NOTE | 2017-01-18 19:15 | PCM.DCSUM1 ---
Discharge Summary - Hospital Course Brief History: This is a 56 yo white male with past medical hx/o Obesity and Chronic Back Pain who comes to the emergency department with complaints of worsening shortness of breath. - Discharge Data Discharge Date: 01/18/17 Discharge Disposition: 20 Condition: - Patient Summary/Data Operative Procedure(s) Performed: None Complications: Consults: Consultations 01/16/17 13:53 Consult to Case Management [CONS] Routine Consult to Contract Implementation Analyst [CONS] Routine Consult to Spiritual Care [CONS] Routine OT Evaluation and Treatment [CONS] Routine PT Evaluation and Treatment [CONS] Routine Respiratory Care Assess and Treatment [CONS] Routine 01/16/17 13:57 Consult to Dietary [Consult to Leather Carver] [CONS] Routine Hospital Course: Patient was primarily admitted for medical treatment of his worsening shortness of breath and difficulty breathing. At the time of this admission, we did not have any additional information in regards to his past medical history. Prior ED records, showed he was initially seen here in the emergency department back last month and was shipped out to [facility] due to acute respiratory failure. Patient was discharged not too long ago in [facility] and he was told he had pneumonia and nothing else. However after we obtained his medical records from [facility] and reviewed it, the patient actually had following multiple health related issues:acute respiratory failure with hypoxia and hypercapnia, sleep apnea, severe obesity, heart failure, pneumonia, chronic bronchitis, and respiratory insufficiency. On this admission, the patient received appropriate treatment to include respiratory and heart care. He was initially on simple mask at 10L sating at 88 - low 90s but with intravenous IV Solu-Medrol, bronchodilators, morphine, and magnesium; the patient slowly improved on this regimen. He was on 3L NC for the most part today. As for his heart failure, the patient was put on heart failure protocol to include lasix drip with low dose hydrochlorothiazide along with salt and fluid restriction. As his lungs got better, his heart followed. His most recent Pro- BNP was noted at 6408 compared to 10,948 on admission. Patient had no primary care doctor. He has not been routinely following anybody. We felt that the above medical issues may have been chronic in nature and that it just now catching up to him. This morning the patient was doing very well, labs showed fairly much improved as well. He slept pretty good and reported no new complaints. He was hoping he could go home tomorrow. Unfortunately at about on or past 1700 today, the patient abruptly decompensated and eventually became unresponsive. His ICU nurses were there at bedside when this happened suddenly. Code blue was activated and "Code Blue Team" headed by ED providers responded to him immediately. While the code was running, I initially made a few attempts to reach his DPOA, son Michael but w/o much success. However after meeting up family's friend for their help and speaking to Mariano (patient's other son), I was finally able to speak with Michael and told him about the "bad news". ESTEPHANIA was told his dad at 1823 today after an heroic attempt by the Code Blue Team to resuscitate him. Patient's body will be released to the appropriate services once we got input from his children. - Patient Instructions Other/Special Instructions: - Patient at 1823 today. His sons: Michael and Mariano valles both notified - Discharge Plan Home Medications: Home Meds Furosemide [Lasix] 40 mg PO ACBREAKFAST 01/16/17 [History] Albuterol Sulfate 2.5 mg IH Q4H PRN 01/17/17 [History] Albuterol Sulfate [Proair Respiclick] 2 puff INH Q6H PRN 01/17/17 [History] Mometasone/Formoterol [Dulera 100-5 MCG] 2 puff IH BID 01/17/17 [History] Referrals: PCP,None [Primary Care Provider] - - Discharge Summary/Plan Comment Discharge Summary/Plan Comment: Patient - General Info Date of Service: 01/18/17 Admission Dx/Problem (Free Text: Admission Diagnosis/Problem Admission Diagnosis/Problem Respiratory failure with hypoxia Subjective Update: Follow Up - Review of Systems Systems Review Comment: Patient - Patient Data Vitals - Most Recent: Last Vital Signs Temp 36.4 C 01/18/17 16:00 Pulse 123 H 01/18/17 11:15 Resp 27 H 01/18/17 16:00 BP 105/87 01/18/17 16:00 Pulse Ox 93 L 01/18/17 16:00 Weight - Most Recent: 160.209 kg I&O - Last 24 hours: Intake & Output 0801/18/17 01/18/17 06:59 14:59 22:59 Intake Total 633 158 9043 Output Total 64 585 Balance -77 -214 1120 Lab Results - Last 24 hrs: Laboratory Results - last 24 hr 01/17/17 01/18/17 01/18/17 Range/Units 20:45 06:05 06:05 WBC 17.07 H (4.23-9.07) K/mm3 RBC 4.93 (4.63-6.08) M/mm3 Hgb 13.5 L (13.7-17.5) gm/L Hct 44.2 (40.1-51.0) % MCV 89.7 (79.0-92.2) fl MCH 27.4 (25.7-32.2) pg MCHC 30.5 L (32.2-35.5) g/dl RDW Std Deviation 53.2 H (35.1-43.9) fL Plt Count 157 L (163-337) K/mm3 MPV 11.1 (9.4-12.3) fl Neut % (Auto) 92.6 H (34.0-67.9) % Lymph % (Auto) 3.7 L (21.8-53.1) % [place] % (Auto) 3.4 L (5.3-12.2) % Eos % (Auto) 0 L (0.8-7.0) Baso % (Auto) 0.1 (0.1-1.2) % Neut # (Auto) 15.80 H (1.78-5.38) K/mm3 Lymph # (Auto) 0.64 L (1.32-3.57) K/mm3 [place] # (Auto) 0.58 (0.30-0.82) K/mm3 Eos # (Auto) 0.00 L (0.04-0.54) K/mm3 Baso # (Auto) 0.01 (0.01-0.08) K/mm3 Manual Slide Review Abnormal smear Sodium 135 L (136-145) mEq/L Potassium 4.4 (3.5-5.1) mEq/L Chloride 99 (98-107) mEq/L Carbon Dioxide 28 (21-32) mEq/L Anion Gap 12.4 (5-15) BUN 39 H (7-18) mg/dL Creatinine 1.5 H (0.7-1.3) mg/dL Est Cr Clr Drug Dosing 58.57 mL/min Estimated GFR (MDRD) 48 (>60) mL/min BUN/Creatinine Ratio 26.0 H (14-18) Glucose 152 H (74-106) mg/dL POC Glucose 225 H (70-105) mg/dL Calcium 9.3 (8.5-10.1) mg/dL Magnesium 2.3 (1.8-2.4) mg/dl C-Reactive Protein 11.9 H* (<1.0) mg/dL Giz-I-Efrkicobqxy Pept 6408 H (0-125) pg/mL 01/18/17 01/18/17 01/18/17 Range/Units 07:30 11:26 17:51 WBC (4.23-9.07) K/mm3 RBC (4.63-6.08) M/mm3 Hgb (13.7-17.5) gm/L Hct (40.1-51.0) % MCV (79.0-92.2) fl MCH (25.7-32.2) pg MCHC (32.2-35.5) g/dl RDW Std Deviation (35.1-43.9) fL Plt Count (163-337) K/mm3 MPV (9.4-12.3) fl Neut % (Auto) (34.0-67.9) % Lymph % (Auto) (21.8-53.1) % [place] % (Auto) (5.3-12.2) % Eos % (Auto) (0.8-7.0) Baso % (Auto) (0.1-1.2) % Neut # (Auto) (1.78-5.38) K/mm3 Lymph # (Auto) (1.32-3.57) K/mm3 [place] # (Auto) (0.30-0.82) K/mm3 Eos # (Auto) (0.04-0.54) K/mm3 Baso # (Auto) (0.01-0.08) K/mm3 Manual Slide Review Sodium (136-145) mEq/L Potassium (3.5-5.1) mEq/L Chloride (98-107) mEq/L Carbon Dioxide (21-32) mEq/L Anion Gap (5-15) BUN (7-18) mg/dL Creatinine (0.7-1.3) mg/dL Est Cr Clr Drug Dosing mL/min Estimated GFR (MDRD) (>60) mL/min BUN/Creatinine Ratio (14-18) Glucose (74-106) mg/dL POC Glucose 139 H 236 H 204 H (70-105) mg/dL Calcium (8.5-10.1) mg/dL Magnesium (1.8-2.4) mg/dl C-Reactive Protein (<1.0) mg/dL Ptb-J-Apxmjuwiebe Pept (0-125) pg/mL 01/18/17 Range/Units 18:05 WBC (4.23-9.07) K/mm3 RBC (4.63-6.08) M/mm3 Hgb (13.7-17.5) gm/L Hct (40.1-51.0) % MCV (79.0-92.2) fl MCH (25.7-32.2) pg MCHC (32.2-35.5) g/dl RDW Std Deviation (35.1-43.9) fL Plt Count (163-337) K/mm3 MPV (9.4-12.3) fl Neut % (Auto) (34.0-67.9) % Lymph % (Auto) (21.8-53.1) % [place] % (Auto) (5.3-12.2) % Eos % (Auto) (0.8-7.0) Baso % (Auto) (0.1-1.2) % Neut # (Auto) (1.78-5.38) K/mm3 Lymph # (Auto) (1.32-3.57) K/mm3 [place] # (Auto) (0.30-0.82) K/mm3 Eos # (Auto) (0.04-0.54) K/mm3 Baso # (Auto) (0.01-0.08) K/mm3 Manual Slide Review Sodium (136-145) mEq/L Potassium (3.5-5.1) mEq/L Chloride (98-107) mEq/L Carbon Dioxide (21-32) mEq/L Anion Gap (5-15) BUN (7-18) mg/dL Creatinine (0.7-1.3) mg/dL Est Cr Clr Drug Dosing mL/min Estimated GFR (MDRD) (>60) mL/min BUN/Creatinine Ratio (14-18) Glucose (74-106) mg/dL POC Glucose 230 H (70-105) mg/dL Calcium (8.5-10.1) mg/dL Magnesium (1.8-2.4) mg/dl C-Reactive Protein (<1.0) mg/dL Sye-L-Jhbnaffhumm Pept (0-125) pg/mL JOHN Results - Last 24 hrs: Microbiology 01/18/17 07:01 Gram Stain - Final Sputum - Expectorated Med Orders - Current: Current Medications Acetaminophen (Tylenol) 650 mg PO Q4H PRN PRN Reason: Pain (Mild 1-3)/fever Hydrocodone Bitart/Acetaminophen ([place] 325-5 Mg) 1 tab PO Q4H PRN PRN Reason: Pain (moderate 4-6) Al Hydroxide/Mg Hydroxide (Mag-Al Plus) 30 ml PO Q4H PRN PRN Reason: Heartburn Last Admin: 01/18/17 11:48 Dose: 30 ml Albuterol/Ipratropium (Duoneb 3.0-0.5 Mg/3 Ml) 3 ml NEB Q4H PRN PRN Reason: Shortness Of Breath/wheezing Last Admin: 01/18/17 08:42 Dose: 3 ml Bisacodyl (Dulcolax) 5 mg PO DAILY PRN PRN Reason: Constipation Dextrose/Water (Dextrose 50% In Water) 50 ml IVPUSH ASDIRECTED PRN PRN Reason: Hypoglycemia Docusate Sodium (Colace) 100 mg PO BID PRN PRN Reason: Constipation Furosemide (Lasix) 40 mg PO ACBREAKFAST JUAN FRANCISCO Glipizide (Glucotrol Xl) 5 mg PO BID JUAN FRANCISCO Last Admin: 01/18/17 08:22 Dose: 5 mg Heparin Sodium (Porcine) (Heparin Sodium) 5,000 units SUBCUT Q8H JUAN FRANCISCO Last Admin: 01/18/17 14:16 Dose: 5,000 units Hydralazine HCl (Apresoline) 20 mg IVPUSH Q4H PRN PRN Reason: Hypertension Hydrochlorothiazide (Hydrochlorothiazide) 12.5 mg PO BIDDIURETIC JUAN FRANCISCO Last Admin: 01/18/17 14:12 Dose: 12.5 mg Promethazine HCl 12.5 mg/ (Sodium Chloride) 50.5 mls @ 100 mls/hr IV Q6H PRN PRN Reason: Nausea/Vomiting Azithromycin 500 mg/ Sodium (Chloride) 250 mls @ 250 mls/hr IV Q24H [facility] Last Admin: 01/18/17 14:26 Dose: 250 mls/hr Ceftriaxone Sodium 1 gm/ (Sodium Chloride) 100 mls @ 200 mls/hr IV Q24H [facility] Last Admin: 01/18/17 08:29 Dose: 200 mls/hr Insulin Aspart (Novolog) 0 unit SUBCUT QIDACANDBED [facility] PRN Reason: Protocol Last Admin: 01/18/17 11:27 Dose: 4 units Lorazepam (Ativan) 1 mg IV Q6H PRN PRN Reason: Anxiety Lorazepam (Ativan) 2 mg IVPUSH Q4H PRN PRN Reason: Seizures Magnesium Sulfate (Pharmacy To Dose - Magnesium Replacement) 1 dose .XX ASDIRECTED [facility] Methylprednisolone Sodium Succinate (Solu-Medrol) 60 mg IVPUSH Q12H [facility] Metoprolol Tartrate (Lopressor) 5 mg IVPUSH Q4H PRN PRN Reason: Tachycardia Last Admin: 01/18/17 11:15 Dose: 5 mg Mometasone Furoate/Formoterol Fumar (Dulera 100-5 Mcg) 2 puff IH BIDRT [facility] Morphine Sulfate (Morphine) 2 mg IVPUSH Q4H PRN PRN Reason: Other Stop: 01/21/17 13:51 Last Admin: 01/18/17 11:05 Dose: 2 mg Morphine Sulfate (Ms Contin) 15 mg PO Q8H [facility] Last Admin: 01/18/17 17:06 Dose: 15 mg Ondansetron HCl (Zofran) 4 mg IV Q6H PRN PRN Reason: Nausea/Vomiting Polyethylene Glycol (Miralax) 17 gm PO DAILY PRN PRN Reason: Constipation Potassium Chloride (Pharmacy To Dose - Potassium Replacement) 1 dose .XX ASDIRECTED [facility] Senna/Docusate Sodium (Senna Plus) 1 tab PO BID PRN PRN Reason: Constipation Sodium Chloride (Saline Flush) 10 ml FLUSH ASDIRECTED PRN PRN Reason: Keep Vein Open Last Admin: 01/18/17 08:23 Dose: 10 ml Temazepam (Restoril) 15 mg PO BEDTIME PRN PRN Reason: Sleep Discontinued Medications Albuterol/Ipratropium (Duoneb 3.0-0.5 Mg/3 Ml) 3 ml NEB ONETIME ONE Stop: 01/16/17 10:46 Last Admin: 01/16/17 10:50 Dose: 3 ml Albuterol/Ipratropium (Duoneb 3.0-0.5 Mg/3 Ml) 3 ml NEB ONETIME ONE Stop: 01/16/17 10:49 Last Admin: 01/16/17 10:51 Dose: 3 ml Furosemide (Lasix) 40 mg IVPUSH NOW ONE Stop: 01/16/17 11:34 Last Admin: 01/16/17 12:02 Dose: 40 mg Hydrochlorothiazide (Hydrochlorothiazide) 12.5 mg PO DAILY ONE Stop: 01/17/17 14:00 Piperacillin Sod/Tazobactam (Sod 4.5 gm/ Sodium Chloride) 100 mls @ 200 mls/hr IV ONETIME ONE Stop: 01/16/17 11:43 Last Admin: 01/16/17 11:26 Dose: 200 mls/hr Vancomycin HCl 2 gm/ Sodium (Chloride) 500 mls @ 250 mls/hr IV ONETIME ONE Stop: 01/16/17 13:13 Last Admin: 01/16/17 12:05 Dose: 250 mls/hr Magnesium Sulfate 2 gm/ Premix 50 mls @ 25 mls/hr IV ONETIME ONE Stop: 01/16/17 15:54 Last Admin: 01/16/17 14:15 Dose: 25 mls/hr Azithromycin 500 mg/ Sodium (Chloride) 250 mls @ 250 mls/hr IV ONETIME ONE Stop: 01/16/17 14:55 Last Admin: 01/16/17 17:16 Dose: Not Given Furosemide 100 mg/ Sodium (Chloride) 100 mls @ 3 mls/hr IV TITRATE JUAN FRANCISCO PRN Reason: Protocol Last Admin: 01/17/17 14:24 Dose: 3 mls/hr Sodium Chloride (Normal Saline) Confirm Administered Dose 1,000 mls @ as directed .ROUTE .STK-MED ONE Stop: 01/18/17 17:54 Sodium Chloride (Normal Saline) Confirm Administered Dose 1,000 mls @ as directed .ROUTE .STK-MED ONE Stop: 01/18/17 17:59 Methylprednisolone Sodium Succinate (Solu-Medrol) 125 mg IVPUSH ONETIME ONE Stop: 01/16/17 10:46 Last Admin: 01/16/17 10:57 Dose: 125 mg Methylprednisolone Sodium Succinate (Solu-Medrol) 80 mg IVPUSH Q8H [facility]ANCISCO Last Admin: 01/18/17 15:34 Dose: 80 mg Sodium Bicarbonate (Sodium Bicarbonate 8.4%) Confirm Administered Dose 250 meq .ROUTE .STK-MED ONE Stop: 01/18/17 18:20 - Exam Physical Findings Comments:: Patient *Q Meaningful Use (DIS) - VTE *Q VTE Criteria *Q: - Stroke *Q Stroke Criteria *Q: - AMI *Q AMI Criteria *Q:
[2017-01-18] MEDS ORDERED: EPINEPHrine 1:10,000 1 MG/10 ML Syringe ONE (20:00)
[2017-01-18] MEDS ORDERED: methylPREDNISolone Sodium Succinate 125 MG/2 ML SDV IVPUSH SCH (21:00)
[2017-01-18] MEDS ORDERED: Formoterol/Mometasone 100-5 MCG 8.8 GM Inhaler IH SCH (21:00)
[2017-01-19] MEDS ORDERED: Furosemide 40 MG Tab PO SCH (06:00)
--- NOTE | 2017-01-20 18:57 | PCM.SN ---
- Free Text/Narrative Note: Chart note on cold blue called on Mr. Moody Magana. Blue was activated on this gentleman who was in the intensive care unit on MedSurg status. Panda was called at 1751 hrs. I could not attends initially as I was trying to arrange for a trauma patient to be transferred to [place]. Patient had collapsed suddenly after using the bathroom and exhibited no palpable pulse and agonal respirations I arrived on scene approximately 1806 hrs. IV site was lost and therefore I placed a IO in the left anterior proximal tibia. Subsequently I took control of the cold and the patient was given 5 further ampules of epinephrine 1 mg strength and initially 2 A of sodium bicarbonate and later a third amp of bicarbonate. CPR was being done continuously exhibited sinus rhythm without any palpable pulse or PDA rhythm. At one point his rhythm exhibited coarse ventricular fibrillation and he was defibrillated at 200 J no palpable pulse and exhibiting a slow sinus rhythm. At 1822 CPR was stopped at my request. I personally could not identify any carotid or femoral pulsations. Patient took 2 further agonal breaths and monitor went into asystole. Resuscitation efforts were stopped and the patient was pronounced at 1823 hrs.
--- NOTE | 2017-01-20 22:08 | PCM.SN ---
- Free Text/Narrative Note: Patient is a 56-year-old male that was located in ICU on [facility] status. Patient walked to the shower with assistance and became dizzy, short of breath , and diaphoretic stating he was not feeling well. Per patients request he returned to the recliner. After a few minutes patient became unresponsive, pale , having agonal respirations. Code blue was activated at 1751. Due to Dr. Bauman trying to arrange transfer for a trauma patient in the E.D. I responded to the code blue. Upon arrival patient was lying in the recliner with agonal respirations with no pulses present. CPR intiated with ventilations via BVM O2 15lpm. Monitor revealed patient was in a PEA. Continuous chest compressions with ventilation were performed with regular pulse check/rhythm checks every 2 minutes. Patient subsequently received epi every 3 to 5 minutes. BS was 230. Patient had received morphine IVP 15 minutes prior to coding. Narcan 0.4mg IVP was administered with no response. Patient was intubated at 1804 with # 8.0 tube by me. Vocal cords were visualized. Equal chest rise with equal bilateral lungs sounds on auscultation was noted. ET CO2 attached confirming placement with good waveform. Confirmed by MICHAEL Bhatt. ET tube secured by Jovany with RT. Secure peripheral IV access was lost and thus 3rd dose of epi 1mg was administered down the ET Tube. Dr. Bauman arrived at bedside at 1806 and subsequently took control of the code. See Dr. Bauman's provider notes for remainder of code.
== END 2017-01-18 20:00 | disposition expired | DRG 189 ==
LOC: JD.ED 10:19 → JD.ICU 13:43
PROVIDERS: ADMIT Internal Medicine; ATTEND Internal Medicine
PROC: 0BH17EZ Insertion of Endotracheal Airway into Trachea, Via Natural or Artificial Opening (ICD-10-PCS; principal; 2017-01-18)
DX: J96.01 Acute respiratory failure with hypoxia (principal); J44.1 Chronic obstructive pulmonary disease with (acute) exacerbation; Z68.42 Body mass index [BMI] 45.0-49.9, adult; I50.9 Heart failure, unspecified; N18.3 Chronic kidney disease, stage 3 (moderate); G89.29 Other chronic pain; M54.9 Dorsalgia, unspecified; F17.210 Nicotine dependence, cigarettes, uncomplicated; Z99.81 Dependence on supplemental oxygen; E11.9 Type 2 diabetes mellitus without complications; E66.01 Morbid (severe) obesity due to excess calories; G47.33 Obstructive sleep apnea (adult) (pediatric); Z87.01 Personal history of pneumonia (recurrent)
CPT/HCPCS: 36415; 71010; 71010-26; 80048; 80053; 81001; 82962; 83036; 83605; 83735; 83880; 84439; 84443; 84484; 85025; 86140; 87040; 87070; 87205; 93005; 93306; 94640-76; 94664; 96365; 96366; 96367; 96374; 96375; 97163-GP; 97530-GP; 99285; 99285-25; A9270-GY; J0171; J0456; J0696; J1644; J1815-GY; J1940; J2270; J2543; J2930; J3370; J3475; J3490; J7030; J7040; J7050